=== PATIENT | male | born 1950 | race Caucasian/White ===

== ENCOUNTER → 2017-03-07 | Outpatient (CLI) | payer MEDICARE ==
[2017-03-07 08:59] LABS: ALT 48 U/L (21-72); AST 25 U/L (17-59); Alkaline Phosphatase 82 U/L (38-126); Anion Gap 13 mmol/L; Blood Urea Nitrogen 16 mg/dL (9-20); Calcium 9.3 mg/dL (8.4-10.2); Carbon Dioxide 28 mmol/L (22-30); Chloride 100 mmol/L (98-107); Cholesterol 149 mg/dL (<200); Glucose 181 mg/dL (74-99); HDL Cholesterol 33 mg/dL (40-60); Non-African American GFR(MDRD) >60 (>60 ml/min/1.73 sqM); Potassium 3.9 mmol/L (3.5-5.1); Sodium 141 mmol/L (137-145); Total Bilirubin 0.5 mg/dL (0.2-1.3); Total Protein 6.3 g/dL (6.3-8.2)
[2017-03-07 09:00] LABS: Triglycerides 412 mg/dL (<150)
[2017-03-07 14:02] LABS: Hemoglobin A1C 7.5 % (4.2-6.1)
[2017-03-07 15:50] LABS: Urine Creatinine 204.1 mg/dL
== END | disposition home or self-care (01) ==
LOC: LABWHC1 07:41
PROVIDERS: ATTEND Internal Medicine
DX: E78.5 Hyperlipidemia, unspecified (principal); I10 Essential (primary) hypertension; E11.9 Type 2 diabetes mellitus without complications
CPT/HCPCS: 36415; 80053; 80061; 82043; 82570; 83036

== ENCOUNTER → 2017-12-10 | Outpatient (CLI) | payer MEDICARE ==
[2017-12-10 08:22] LABS: Anion Gap 14 mmol/L; Blood Urea Nitrogen 22 mg/dL (9-20); Calcium 9.2 mg/dL (8.4-10.2); Carbon Dioxide 26 mmol/L (22-30); Chloride 101 mmol/L (98-107); Cholesterol 163 mg/dL (<200); Glucose 147 mg/dL (74-99); HDL Cholesterol 33 mg/dL (40-60); LDL Cholesterol,Calculated 70 mg/dL (0-99); Potassium 3.9 mmol/L (3.5-5.1); Sodium 141 mmol/L (137-145); Triglycerides 300 mg/dL (<150)
[2017-12-10 11:56] LABS: Hemoglobin A1C 6.6 % (4.0-6.0)
== END | disposition home or self-care (01) ==
LOC: LABWHC1 07:23
PROVIDERS: ATTEND Internal Medicine
DX: E11.9 Type 2 diabetes mellitus without complications (principal); E78.5 Hyperlipidemia, unspecified; M19.90 Unspecified osteoarthritis, unspecified site
CPT/HCPCS: 36415; 80048; 80061; 83036; 86431

== ENCOUNTER → 2018-03-11 | Outpatient (CLI) | payer MEDICARE ==
[2018-03-11 11:18] LABS: HCT 43.4 % (39.0-53.0); HGB 15.2 gm/dL (13.0-17.5); MCH 32.9 pg (25.0-35.0); MCHC 35.1 g/dL (31.0-37.0); MCV 93.7 fL (80.0-100.0); Mean Platelet Volume 7.6; Platelet Count 198 k/uL (150-450); RBC 4.63 m/uL (4.30-5.90); RDW 13.4 % (11.5-15.5)
[2018-03-11 12:03] LABS: Appearance,Urine Clear (Clear); Bilirubin,Urine Negative (Negative); Blood,Urine Negative (Negative); Color,Urine Yellow; Glucose,Urine (UA) Negative (Negative); Ketones,Urine Negative (Negative); Leukocyte Esterase,Urine Trace (Negative); Mucus,Urine Rare /hpf; Nitrite,Urine Negative (Negative); PH, Urine 5.5 (5.0-8.0); Protein,Urine Negative (Negative); RBC,Urine 1 /hpf (0-5); WBC,Urine 4 /hpf (0-5)
[2018-03-11 12:10] LABS: ALT 36 U/L (21-72); AST 35 U/L (17-59); Albumin 4.3 g/dL (3.5-5.0); Alkaline Phosphatase 86 U/L (38-126); Anion Gap 14 mmol/L; Blood Urea Nitrogen 21 mg/dL (9-20); Calcium 9.4 mg/dL (8.4-10.2); Carbon Dioxide 26 mmol/L (22-30); Chloride 100 mmol/L (98-107); Cholesterol 148 mg/dL (<200); Glucose 150 mg/dL (74-99); HDL Cholesterol 31 mg/dL (40-60); LDL Cholesterol,Calculated 56 mg/dL (0-99); Potassium 4.1 mmol/L (3.5-5.1); Sodium 140 mmol/L (137-145); Total Bilirubin 0.7 mg/dL (0.2-1.3); Total Protein 6.6 g/dL (6.3-8.2); Triglycerides 306 mg/dL (<150)
[2018-03-11 12:39] LABS: PSA Annual Screen 1.31 ng/mL (0.00-4.00)
[2018-03-11 19:48] LABS: Hemoglobin A1C 7.1 % (4.0-6.0)
== END | disposition home or self-care (01) ==
LOC: LABWHC1 10:56
PROVIDERS: ATTEND Internal Medicine
DX: I10 Essential (primary) hypertension (principal); E11.9 Type 2 diabetes mellitus without complications; E78.5 Hyperlipidemia, unspecified; Z12.5 Encounter for screening for malignant neoplasm of prostate
CPT/HCPCS: 80061; 80053; 85027; 81001; 82043; 82570; 83036; 36415; G0103

== ENCOUNTER → 2018-07-08 | Outpatient (CLI) | payer MEDICARE ==
[2018-07-08 18:03] LABS: Anion Gap 9.4 mmol/L (4.00-12.00); Calcium 9.4 mg/dL (8.7-10.3); Carbon Dioxide 28.6 mmol/L (21.6-31.8); LDL Cholesterol,Calculated 79.8 mg/dL (0.0-131.0); Potassium 4.1 mmol/L (3.5-5.5); VLDL Calculation 54.2 mg/dL (5.00-40.00)
[2018-07-08 19:12] LABS: Hemoglobin A1C 7.5 % (4.0-6.0)
== END | disposition home or self-care (01) ==
LOC: LABWHC1 08:26
PROVIDERS: ATTEND Internal Medicine
DX: E11.9 Type 2 diabetes mellitus without complications (principal); E78.5 Hyperlipidemia, unspecified
CPT/HCPCS: 36415; 80048; 80061; 83036

== ENCOUNTER → 2018-10-28 | Outpatient (CLI) | payer MEDICARE ==
[2018-10-28 15:56] LABS: Hemoglobin A1C 7.6 % (4.0-6.0)
[2018-10-28 16:02] LABS: Calcium 9.6 mg/dL (8.7-10.3); Carbon Dioxide 30.9 mmol/L (21.6-31.8); Chloride 101 mmol/L (96-109); Cholesterol 173 mg/dL (0-200); Glucose 174 mg/dL (70-110); Potassium 3.8 mmol/L (3.5-5.5); Sodium 141 mmol/L (135-145)
== END | disposition home or self-care (01) ==
LOC: LABWHC1 08:10
PROVIDERS: ATTEND Internal Medicine
DX: E11.9 Type 2 diabetes mellitus without complications (principal); I10 Essential (primary) hypertension; I65.29 Occlusion and stenosis of unspecified carotid artery
CPT/HCPCS: 36415; 80048; 80061; 83036; 83721

== ENCOUNTER → 2019-04-09 | Outpatient (CLI) | payer MEDICARE ==
[2019-04-09 08:04] LABS: HCT 43.5 % (39.0-53.0); HGB 14.6 gm/dL (13.0-17.5); MCH 31.3 pg (25.0-35.0); MCHC 33.6 g/dL (31.0-37.0); MCV 93.1 fL (80.0-100.0); Mean Platelet Volume 7.4; Platelet Count 204 k/uL (150-450); RBC 4.67 m/uL (4.30-5.90); RDW 13.1 % (11.5-15.5); WBC 5.1 k/uL (3.8-10.6)
[2019-04-09 12:06] LABS: African American GFR (CKD) 89.2 (60.0-200.0); Albumin 4.6 g/dL (3.80-4.90); Albumin/Globulin Ratio 2.56 (1.60-3.17); Anion Gap 9.5 mmol/L (4.00-12.00); Calcium 9.3 mg/dL (8.7-10.3); Carbon Dioxide 27.5 mmol/L (21.6-31.8); Globulin 1.8 g/dL (1.6-3.3); Potassium 3.8 mmol/L (3.5-5.5); Total Bilirubin 0.8 mg/dL (0.2-1.2); Total Protein 6.4 g/dL (6.2-8.2)
[2019-04-09 13:36] LABS: Hemoglobin A1C 5.9 % (4.0-6.0)
== END | disposition home or self-care (01) ==
LOC: LABWHC1 07:20
PROVIDERS: ATTEND Internal Medicine
DX: E78.5 Hyperlipidemia, unspecified (principal); E11.9 Type 2 diabetes mellitus without complications; Z12.5 Encounter for screening for malignant neoplasm of prostate
CPT/HCPCS: 80061; 80053; 85027; 82043; 82570; 83036; 36415; G0103

== ENCOUNTER → 2019-07-02 | Outpatient (CLI) | payer MEDICARE ==
[2019-07-02 15:48] LABS: African American GFR (CKD) 101.4 (60.0-200.0); Albumin 4.7 g/dL (3.80-4.90); Albumin/Globulin Ratio 2.61 (1.60-3.17); BUN/Creat Ratio 24.44 Ratio (12.00-20.00); Calcium 9.5 mg/dL (8.7-10.3); Chol/HDL Ratio 4.78; Globulin 1.8 g/dL (1.6-3.3); LDL Cholesterol,Calculated 90.6 mg/dL (0.0-131.0); Potassium 3.9 mmol/L (3.5-5.5); Total Bilirubin 0.6 mg/dL (0.3-1.2); Total Protein 6.5 g/dL (6.2-8.2); VLDL Calculation 30.4 mg/dL (5.00-40.00)
[2019-07-02 17:36] LABS: Hemoglobin A1C 6.2 % (4.0-6.0)
== END ==
LOC: LABWHC1 09:09
PROVIDERS: ATTEND Internal Medicine
DX: I10 Essential (primary) hypertension (principal); E78.5 Hyperlipidemia, unspecified; E11.9 Type 2 diabetes mellitus without complications
CPT/HCPCS: 36415; 80053; 80061; 83036

== ENCOUNTER → 2021-10-05 | Outpatient (CLI) | payer MEDICARE ==
[2021-10-05 14:43] LABS: ALT 25 U/L (10-49); AST 22 U/L (14-35); African American GFR (CKD) 100.7 (60.0-200.0); Albumin 4.5 g/dL (3.8-4.9); Albumin/Globulin Ratio 1.97 (1.60-3.17); Alkaline Phosphatase 57 U/L (41-126); BUN/Creat Ratio 17.42 Ratio (12.00-20.00); Blood Urea Nitrogen 15.4 mg/dL (9.0-27.0); Calcium 9.3 mg/dL (8.7-10.3); Carbon Dioxide 27.2 mmol/L (20.0-27.5); Chloride 102 mmol/L (96-109); Chol/HDL Ratio 3.99 Ratio; Globulin 2.3 g/dL (1.6-3.3); Glucose 93 mg/dL (70-110); LDL Cholesterol,Calculated 71.2 mg/dL (0.0-131.0); Non-African American GFR(CKD) 86.9 (60.0-200.0); Potassium 3.4 mmol/L (3.5-5.5); Sodium 142 mmol/L (135-145); Total Protein 6.8 g/dL (6.2-8.2)
== END | disposition home or self-care (01) ==
LOC: LABWHC1 07:23
PROVIDERS: ATTEND Internal Medicine Interventional Cardiology
DX: E78.2 Mixed hyperlipidemia (principal)
CPT/HCPCS: 36415; 80053; 80061

== ENCOUNTER → 2021-12-14 | Outpatient (CLI) | payer MEDICARE ==
[2021-12-14 10:48] LABS: HCT 45.6 % (39.6-50.0); HGB 14.9 g/dL (13.0-17.0); MCH 31.3 pg (27.0-32.0); MCHC 32.7 g/dL (32.0-37.0); MCV 95.8 fL (80.0-97.0); Mean Platelet Volume 10.1 fL (9.5-12.2); NRBC Per 100 WBC 0 /100 WBCS (0.0-0.0); Platelet Count 210 X 10*3/uL (140-440); RBC 4.76 X 10*6/uL (4.40-5.60); RDW 12.4 % (11.5-14.5); WBC 4.69 X 10*3/uL (4.50-10.00)
[2021-12-14 11:32] LABS: African American GFR (CKD) 96.8 (60.0-200.0); Albumin 4.8 g/dL (3.8-4.9); Albumin/Globulin Ratio 2.29 (1.60-3.17); Anion Gap 13.1 mmol/L (10.00-18.00); BUN/Creat Ratio 17.21 Ratio (12.00-20.00); Blood Urea Nitrogen 15.9 mg/dL (9.0-27.0); Calcium 9.6 mg/dL (8.7-10.3); Globulin 2.1 g/dL (1.6-3.3); Non-African American GFR(CKD) 83.5 (60.0-200.0); Potassium 4.3 mmol/L (3.5-5.5); Total Bilirubin 0.3 mg/dL (0.30-1.20); Total Protein 6.9 g/dL (6.2-8.2)
[2021-12-14 12:51] LABS: Appearance,Urine Cloudy (Clear); Bacteria,Urine None Seen /HPF (None Seen); Bilirubin,Urine Negative (Negative); Blood,Urine Negative (Negative); Calcium Oxalate Crystals,Urine Present /LPF (None Seen); Color,Urine Dark Yellow (Yellow); Ketones,Urine Trace mg/dL (Negative); Nitrite,Urine Negative (Negative); Specific Gravity,Urine 1.024 (1.001-1.030)
== END | disposition home or self-care (01) ==
LOC: LABWHC1 07:01
PROVIDERS: ATTEND Internal Medicine
DX: I10 Essential (primary) hypertension (principal); E11.9 Type 2 diabetes mellitus without complications; E78.5 Hyperlipidemia, unspecified
CPT/HCPCS: 36415; 80053; 81001; 83036; 85027

== ENCOUNTER → 2022-03-12 | Outpatient (CLI) | payer MEDICARE ==
[2022-03-12 11:06] LABS: Basophils # (A) 0.05 X 10*3/uL (0.00-0.10); Eosinophils # (A) 0.16 X 10*3/uL (0.04-0.35); Eosinophils % (A) 3.3 %; HCT 45.4 % (39.6-50.0); HGB 15.2 g/dL (13.0-17.0); Immature Grans, Automated 0.2 %; Lymphocytes % (A) 20.7 %; MCH 31.2 pg (27.0-32.0); MCHC 33.5 g/dL (32.0-37.0); MCV 93.2 fL (80.0-97.0); Mean Platelet Volume 10.7 fL (9.5-12.2); Monocytes # (A) 0.46 X 10*3/uL (0.20-1.00); Monocytes % (A) 9.5 %; NRBC Per 100 WBC 0 /100 WBCS (0.0-0.0); Neutrophils # (A) 3.15 X 10*3/uL (1.80-7.70); Neutrophils % (A) 65.3 %; Platelet Count 188 X 10*3/uL (140-440); RBC 4.87 X 10*6/uL (4.40-5.60); RDW 11.9 % (11.5-14.5); WBC 4.83 X 10*3/uL (4.50-10.00)
[2022-03-12 11:32] LABS: Rheumatoid Factor, Qnt <10 IU/mL (0-15)
[2022-03-12 12:05] LABS: ALT 26 U/L (10-49); AST 23 U/L (14-35); African American GFR (CKD) 99.9 (60.0-200.0); Albumin 4.8 g/dL (3.8-4.9); Alkaline Phosphatase 72 U/L (41-126); BUN/Creat Ratio 15.01 Ratio (12.00-20.00); Blood Urea Nitrogen 13.3 mg/dL (9.0-27.0); Calcium 9.8 mg/dL (8.7-10.3); Carbon Dioxide 30.1 mmol/L (20.0-27.5); Chloride 99 mmol/L (96-109); Globulin 2.2 g/dL (1.6-3.3); Glucose 111 mg/dL (70-110); Non-African American GFR(CKD) 86.2 (60.0-200.0); Potassium 4.9 mmol/L (3.5-5.5); Sodium 140 mmol/L (135-145)
== END | disposition home or self-care (01) ==
LOC: LABWHC1 07:03
PROVIDERS: ATTEND Physician Assistant
DX: E55.9 Vitamin D deficiency, unspecified (principal); G60.9 Hereditary and idiopathic neuropathy, unspecified
CPT/HCPCS: 36415; 80053; 82306; 82607; 84207; 84439; 84443; 84481; 85025; 86038; 86431

== ENCOUNTER → 2022-04-10 | Outpatient (CLI) | payer MEDICARE ==
--- NOTE | 2022-04-10 14:31 | US ---
EXAMINATION TYPE: US venous doppler duplex LE DATE OF EXAM: 04/10/2022 1:41 PM COMPARISON: NONE CLINICAL HISTORY: M79.606 LOWER EXTREMITY PAIN. Patient states he had bruising on the left leg that h is physician was concerned about. SIDE PERFORMED: Bilateral TECHNIQUE: The lower extremity deep venous system is examined utilizing real time linear array sonog breanna with graded compression, doppler sonography and color-flow sonography. VESSELS IMAGED: Common Femoral Vein Deep Femoral Vein Greater Saphenous Vein * Femoral Vein Popliteal Vein Small Saphenous Vein * Proximal Calf Veins (* superficial vessels) Right Leg: Negative for DVT Left Leg: Negative for DVT IMPRESSION: 1. Bilateral lower extremity ultrasound negative for deep venous thrombosis
== END | disposition home or self-care (01) ==
LOC: RADUSWWP 13:39
PROVIDERS: ATTEND Internal Medicine
DX: M79.606 Pain in leg, unspecified (principal); S80.12XA Contusion of left lower leg, initial encounter; Y99.9 Unspecified external cause status
CPT/HCPCS: 93970

== ENCOUNTER 2023-04-15 02:05 | Emergency (ER) | payer MEDICARE ==
[2023-04-15 02:15] VITALS: RESP 18; TEMP 97.8
[2023-04-15] MEDS ORDERED: KETOROLAC 15 MG/ML 1 ML VIAL IM STA (02:41)
[2023-04-15] MEDS ORDERED: ORPHENADRINE 30 MG/ML 2 ML VIAL IM STA (02:41)
--- NOTE | 2023-04-15 02:51 | ED ---
Back Pain HPI - General Chief Complaint: Back Pain/Injury Stated Complaint: Right low back pain Time Seen by Provider: 04/15/23 02:33 Source: patient Limitations: no limitations - History of Present Illness Initial Comments: 72-year-old male presenting with chief complaint of back pain. He states that this evening he was bending over any when he tried to stand up he had severe lower back pain. Located mainly on the right lower side. No loss of bowel or bladder control or saddle paresthesia. No hematuria or dysuria. No weakness. - Related Data Allergies Allergy/AdvReac Type Severity Reaction Status Date / Time No Known Allergies Allergy Verified 04/15/23 02:19 Review of Systems ROS Statement: Those systems with pertinent positive or pertinent negative responses have been documented in the HPI. ROS Other: All systems not noted in ROS Statement are negative. Past Medical History Past Medical History: Diabetes Mellitus, Hyperlipidemia, Hypertension Additional Past Medical History / Comment(s): Symptoms of parkinsons History of Any Multi-Drug Resistant Organisms: None Reported Past Surgical History: Hernia Repair, Tonsillectomy Additional Past Surgical History / Comment(s): Tonsils and adenoids, Rt thumb injury repair, repair of Right meniscus, sphincter repair, Left carotid endardectomy, Left cataract Smoking Status: Never smoker Past Alcohol Use History: Rare Past Drug Use History: None Reported General Exam Limitations: no limitations General appearance: alert, in no apparent distress Head exam: Present: atraumatic, normocephalic, normal inspection Eye exam: Present: normal appearance, EOMI Neck exam: Present: normal inspection, full ROM Respiratory exam: Present: normal lung sounds bilaterally. Absent: respiratory distress, wheezes, rales, rhonchi, stridor Cardiovascular Exam: Present: regular rate, normal rhythm, normal heart sounds. Absent: systolic murmur, diastolic murmur, rubs, gallop, clicks Back exam: Present: normal inspection, paraspinal tenderness. Absent: vertebral tenderness Neurological exam: Present: alert, oriented X3, CN II-XII intact Psychiatric exam: Present: normal affect, normal mood Skin exam: Present: warm, dry, intact, normal color. Absent: rash Course Vital Signs 04/15/23 04/15/23 02:11 03:49 Temperature 97.8 F Pulse Rate 82 83 Respiratory 18 18 Rate Blood Pressure 144/73 129/70 O2 Sat by Pulse 98 97 Oximetry Medical Decision Making - Medical Decision Making Was pt. sent in by a medical professional or institution (, PA, COGNOS ANALYST, urgent care, hospital, or assisted...) When possible be specific @ -No Did you speak to anyone other than the patient for history (EMS, parent, family, police, friend...)? What history was obtained from this source @ -No Did you review nursing and triage notes (agree or disagree)? Why? @ -I reviewed and agree with nursing and triage notes Were old charts reviewed (outside hosp., previous admission, EMS record, old EKG, old radiological studies, urgent care reports/EKG's, assisted records)? Report findings @ -No old charts were reviewed Differential Diagnosis (chest pain, altered mental status, abdominal pain women, abdominal pain men, vaginal bleeding, weakness, fever, dyspnea, syncope, headache, dizziness, GI bleed, back pain, seizure, CVA, palpatations, mental health, musculoskeletal)? @ -MDM Differential Back Pain: Strain, zoster, cauda equina syndrome, epidural abscess, vertebral osteomyelitis, discitis, fracture, subluxation, disc herniation, DJD, spinal stenosis, dissection, AAA, pancreatitis, peptic ulcer disease, pyelonephritis, kidney stone this is not meant to be an all-inclusive list. EKG interpreted by me (3pts min.). @ -As above X-rays interpreted by me (1pt min.). @ -None done CT interpreted by me (1pt min.). @ -None done U/S interpreted by me (1pt. min.). @ -None done What testing was considered but not performed or refused? (CT, X-rays, U/S, labs)? Why? @ -None What meds were considered but not given or refused? Why? @ -None Did you discuss the management of the patient with other professionals (professionals i.e. , HAL, COGNOS ANALYST, lab, RT, psych nurse, social security assessor, tube worker, teacher, protective officer, human services case manager)? Give summary @ -No Was smoking cessation discussed for >3mins.? @ -No Was critical care preformed (if so, how long)? @ -No Were there social determinants of health that impacted care today? How? (Homelessness, low income, unemployed, alcoholism, drug addiction, transportation, low edu. Level, literacy, decrease access to med. care, residential, rehab)? @ -No Was there de-escalation of care discussed even if they declined (Discuss DNR or withdrawal of care, Hospice)? DNR status @ -No What co-morbidities impacted this encounter? (DM, HTN, Smoking, COPD, CAD, Cancer, CVA, ARF, Chemo, Hep., AIDS, mental health diagnosis, sleep apnea, morbid obesity)? @ -None Was patient admitted / discharged? Hospital course, mention meds given and route, prescriptions, significant lab abnormalities, going to OR and other pertinent info. @ -72-year-old male presenting with chief complaint of right-sided lower back pain that started this evening after bending over. No red flag symptoms. No urinary symptoms. Physical examination shows right-sided paraspinal muscle tenderness. Patient is given Toradol, Norflex, lidocaine patch, and reassessment he reports dramatic improvement in his pain. He'll be discharged home. Educated on supportive management. Follow-up with PCP. Report back to ER with any new or worsening symptoms. Discussed return parameters and answered all questions. Patient conveyed verbal understanding and agreed to the plan. I discussed this case in detail with my attending Dr. Melgoza Undiagnosed new problem with uncertain prognosis? @ -No Drug Therapy requiring intensive monitoring for toxicity (Heparin, Nitro, Insulin, Cardizem)? @ -No Were any procedures done? @ -No Diagnosis/symptom? @ -Lower back strain Acute, or Chronic, or Acute on Chronic? @ -Acute Uncomplicated (without systemic symptoms) or Complicated (systemic symptoms)? @ -Uncomplicated Side effects of treatment? @ -No Exacerbation, Progression, or Severe Exacerbation? @ -No Poses a threat to life or bodily function? How? (Chest pain, [place], [place], pneumonia, PE, COPD, DKA, ARF, appy, cholecystitis, CVA, Diverticulitis, Homicidal, Suicidal, threat to staff... and all critical care pts) @ -No Disposition Clinical Impression: Strain of lumbar region Disposition: HOME SELF-CARE Condition: Good Instructions (If sedation given, give patient instructions): Acute Low Back Pain (ED) Additional Instructions: Follow-up with PCP. Report back to ER with any new or worsening symptoms. Alternate Motrin and Tylenol as needed for pain control. [id number] lidocaine patches may be helpful. Do not take cyclobenzaprine before driving or operating heavy machinery as it may cause drowsiness. Is patient prescribed a controlled substance at d/c from ED?: No Referrals: Xu Lundberg MD [Primary Care Provider] - 1-2 days Time of Disposition: 03:25
[2023-04-15] MEDS ORDERED: CYCLOBENZAPRINE 10MG STARTER 3 TAB BTL PO STA (03:25)
[2023-04-15 03:51] VITALS: BP 129/70; PULSE 83
[2023-04-15] MEDS ORDERED: LIDOCAINE 5% PATCH TOPICAL SCH (09:00)
== END 2023-04-15 03:50 | disposition home or self-care (01) ==
LOC: EC 02:05 → SUPCPDRO 02:05 → EC 03:50
DX: S39.012A Strain of muscle, fascia and tendon of lower back, initial encounter (principal); I10 Essential (primary) hypertension; E11.9 Type 2 diabetes mellitus without complications; X50.1XXA Overexertion from prolonged static or awkward postures, initial encounter
CPT/HCPCS: 99283; 96372 ×2; J2360; J1885

== ENCOUNTER → 2023-04-25 | Outpatient (CLI) | payer MEDICARE ==
[2023-04-25 13:30] LABS: ALT 21 U/L (10-49); AST 24 U/L (14-35); Albumin 4.7 d/dL (3.8-4.9); Albumin/Globulin Ratio 2.24 Ratio (1.60-3.17); Alkaline Phosphatase 67 U/L (41-126); BUN/Creat Ratio 21.38 Ratio (12.00-20.00); Blood Urea Nitrogen 17.1 mg/dL (9.0-27.0); Calcium 9.8 mg/dL (8.7-10.3); Carbon Dioxide 29.3 mmol/L (21.6-31.8); Chloride 100 mmol/L (96-109); Chol/HDL Ratio 3.17 Ratio; Globulin 2.1 d/dL (1.6-3.3); Glucose 106 mg/dL (70-110); LDL Cholesterol,Calculated 68.5 mg/dL (0.0-131.0); Potassium 4.3 mmol/L (3.5-5.5); Sodium 143 mmol/L (135-145); Total Bilirubin 0.3 mg/dL (0.3-1.2); Total Protein 6.8 d/dL (6.2-8.2)
== END | disposition home or self-care (01) ==
LOC: LABWHC1 06:49
PROVIDERS: ATTEND Internal Medicine Interventional Cardiology
DX: E78.2 Mixed hyperlipidemia (principal)
CPT/HCPCS: 36415; 80053; 80061

== ENCOUNTER → 2023-11-10 | Outpatient (CLI) | payer MEDICARE ==
[2023-11-10 11:19] LABS: Chol/HDL Ratio 3.14 Ratio
[2023-11-10 11:20] LABS: ALT 19 U/L (10-49); AST 20 U/L (14-35); LDL Cholesterol,Calculated 73.4 mg/dL (0.0-131.0)
== END | disposition home or self-care (01) ==
LOC: LABWHC1 06:56
PROVIDERS: ATTEND Internal Medicine Interventional Cardiology
DX: E78.2 Mixed hyperlipidemia (principal)
CPT/HCPCS: 36415; 80061; 84450; 84460

== ENCOUNTER 2024-01-24 23:38 | Inpatient (IN) | payer MEDICARE ==
[2024-01-25 00:27] LABS: Basophils # (A) 0.1 k/uL (0-0.2); Basophils % (A) 1 %; Eosinophils # (A) 0.2 k/uL (0-0.7); Eosinophils % (A) 3 %; HCT 40.8 % (39.0-53.0); HGB 13.7 gm/dL (13.0-17.5); Lymphocytes # (A) 0.9 k/uL (1.0-4.8); Lymphocytes % (A) 19 %; MCH 31.5 pg (25.0-35.0); MCHC 33.6 g/dL (31.0-37.0); MCV 93.7 fL (80.0-100.0); Mean Platelet Volume 8.1; Monocytes # (A) 0.4 k/uL (0-1.0); Monocytes % (A) 8 %; Neutrophils # (A) 3.3 k/uL (1.3-7.7); Neutrophils % (A) 67 %; Platelet Count 182 k/uL (150-450); RBC 4.35 m/uL (4.30-5.90); RDW 12.7 % (11.5-15.5); WBC 4.9 k/uL (3.8-10.6)
[2024-01-25 00:38] LABS: ALT 23 U/L (4-49); AST 28 U/L (17-59); African American GFR (CKD) >90 (>60 ml/min/1.73 sqM); Albumin 4.1 g/dL (3.5-5.0); Alkaline Phosphatase 69 U/L (38-126); Anion Gap 8 mmol/L; Blood Urea Nitrogen 13 mg/dL (9-20); Calcium 8.9 mg/dL (8.4-10.2); Carbon Dioxide 32 mmol/L (22-30); Chloride 97 mmol/L (98-107); Glucose 126 mg/dL (74-99); Magnesium 1.6 mg/dL (1.6-2.3); Non-African American GFR(CKD) >90 (>60 ml/min/1.73 sqM); Potassium 3.4 mmol/L (3.5-5.1); Sodium 137 mmol/L (137-145); Total Bilirubin 0.6 mg/dL (0.2-1.3); Total Protein 6.3 g/dL (6.3-8.2)
[2024-01-25 00:49] LABS: INR 0.9 (<1.2); Partial Thromboplastin Time 23.1 sec (22.0-30.0); Prothrombin Time 10.5 sec (10.0-12.5)
--- NOTE | 2024-01-25 00:57 | ED ---
General Adult HPI - General Chief complaint: Chest Pain Stated complaint: warmth in extremities, heart beating sensation Time Seen by Provider: 01/24/24 23:49 Source: patient, RN notes reviewed, old records reviewed Mode of arrival: ambulatory Limitations: no limitations - History of Present Illness Initial comments: 73-year-old male presenting for evaluation of chest pain with radiation to the left arm. Patient is scheduled for heart cath in 2 days secondary to abnormal outpatient stress test. He has no prior history of stenting. He has history of diabetes and hypertension. This evening he developed a substernal chest discomfort with radiation into the left arm. No associated vomiting or diaphoresis. Pain was at rest. - Related Data Allergies Allergy/AdvReac Type Severity Reaction Status Date / Time No Known Allergies Allergy Verified 04/15/23 02:19 Review of Systems ROS Statement: Those systems with pertinent positive or pertinent negative responses have been documented in the HPI. ROS Other: All systems not noted in ROS Statement are negative. Past Medical History Past Medical History: Diabetes Mellitus, Hyperlipidemia, Hypertension Additional Past Medical History / Comment(s): Symptoms of parkinsons History of Any Multi-Drug Resistant Organisms: None Reported Past Surgical History: Hernia Repair, Tonsillectomy Additional Past Surgical History / Comment(s): Tonsils and adenoids, Rt thumb injury repair, repair of Right meniscus, sphincter repair, Left carotid endard ectomy, Left cataract Smoking Status: Never smoker Past Alcohol Use History: Rare Past Drug Use History: None Reported General Exam Limitations: no limitations General appearance: alert, in no apparent distress Head exam: Present: atraumatic, normocephalic Eye exam: Present: normal appearance, PERRL ENT exam: Present: normal exam Neck exam: Present: normal inspection Respiratory exam: Present: normal lung sounds bilaterally. Absent: respiratory distress Cardiovascular Exam: Present: regular rate, normal rhythm GI/Abdominal exam: Present: soft. Absent: distended, tenderness, guarding Extremities exam: Present: normal inspection Neurological exam: Present: alert, oriented X3. Absent: motor sensory deficit Psychiatric exam: Present: normal affect, normal mood Skin exam: Present: warm, dry, intact. Absent: cyanosis, diaphoretic Course Vital Signs 01/24/24 01/25/24 01/25/24 23:40 00:08 01:27 Temperature 97.9 F Pulse Rate 83 80 68 Respiratory 16 16 17 Rate Blood Pressure 144/78 127/71 138/73 O2 Sat by Pulse 98 94 L 98 Oximetry Medical Decision Making - Medical Decision Making Was pt. sent in by a medical professional or institution (HAL Lopez, AUTOMATIC BOW MAKER MACHINE TENDER, urgent care, hospital, or fci...) When possible be specific @ -No Did you speak to anyone other than the patient for history (EMS, parent, family, police, friend...)? What history was obtained from this source @ -No Did you review nursing and triage notes (agree or disagree)? Why? @ -I reviewed and agree with nursing and triage notes Were old charts reviewed (outside hosp., previous admission, EMS record, old EKG, old radiological studies, urgent care reports/EKG's, fci records)? Report findings @ -No old charts were reviewed Differential Chest Pain: Stable Angina, Unstable Angina, STEMI, NSTEMI Aortic Dissection, Pneumothorax, Musculoskeletal, Esophageal Spasm GERD, Cholecystitis, Pancreatitis, Zoster, this is not meant to be an all-inclusive list. EKG interpreted by me (3pts min.). @ -EKG: Sinus rhythm rate of 78, ND interval 184, QRS duration 116, QTc [address] segment elevation. X-rays interpreted by me (1pt min.). @Chest x-ray negative for acute cardiopulmonary disease CT interpreted by me (1pt min.). @ -None done U/S interpreted by me (1pt. min.). @ -None done What testing was considered but not performed or refused? (CT, X-rays, U/S, labs)? Why? @ -None What meds were considered but not given or refused? Why? @ -None Did you discuss the management of the patient with other professionals (professionals i.e. HAL Lopez, AUTOMATIC BOW MAKER MACHINE TENDER, lab, RT, psych nurse, psychologist social, cold mill inspector, teacher, air control/anti air warfare officer, pillowcase cutter)? Give summary @ -Sound physician group Was smoking cessation discussed for >3mins.? @ -No Was critical care preformed (if so, how long)? @ -No Were there social determinants of health that impacted care today? How? (Homelessness, low income, unemployed, alcoholism, drug addiction, transportation, low edu. Level, literacy, decrease access to med. care, correction, rehab)? @ -No Was there de-escalation of care discussed even if they declined (Discuss DNR or withdrawal of care, Hospice)? DNR status @ -No What co-morbidities impacted this encounter? (DM, HTN, Smoking, COPD, CAD, Cancer, CVA, ARF, Chemo, Hep., AIDS, mental health diagnosis, sleep apnea, morbid obesity)? @ -Hypertension, diabetes Was patient admitted / discharged? Hospital course, mention meds given and route, prescriptions, significant lab abnormalities, going to OR and other pertinent info. @ -[73-year-old male presenting for evaluation of chest pain with radiation to the left arm. EKG is sinus without ST segment elevation. Patient's chest x-ray is clear. Laboratory testing including initial troponin unremarkable. Given the recent positive stress test he will be observed for serial cardiac enzymes, telemetry, cardiology consultation. Case discussed with Dr. Farah who will admit. Undiagnosed new problem with uncertain prognosis? @ -No Drug Therapy requiring intensive monitoring for toxicity (Heparin, Nitro, Insulin, Cardizem)? @ -No Were any procedures done? @ -No Diagnosis/symptom? @ -[Chest pain Acute, or Chronic, or Acute on Chronic? @ -Acute Uncomplicated (without systemic symptoms) or Complicated (systemic symptoms)? @ -Default Side effects of treatment? @ -No Exacerbation, Progression, or Severe Exacerbation? @ -No Poses a threat to life or bodily function? How? (Chest pain, [place], [place], pneumonia, PE, COPD, DKA, ARF, appy, cholecystitis, CVA, Diverticulitis, Homicidal, Suicidal, threat to staff... and all critical care pts) @ -Yes, ACS - Lab Data Result diagrams: 01/24/24 23:57 01/24/24 23:57 Lab Results 01/24/24 01/24/24 01/24/24 Range/Units 23:57 23:57 23:57 WBC 4.9 (3.8-10.6) k/uL RBC 4.35 (4.30-5.90) m/uL Hgb 13.7 (13.0-17.5) gm/dL Hct 40.8 (39.0-53.0) % MCV 93.7 (80.0-100.0) fL MCH 31.5 (25.0-35.0) pg MCHC 33.6 (31.0-37.0) g/dL RDW 12.7 (11.5-15.5) % Plt Count 182 (150-450) k/uL MPV 8.1 Neutrophils % 67 % Lymphocytes % 19 % Monocytes % 8 % Eosinophils % 3 % Basophils % 1 % Neutrophils # 3.3 (1.3-7.7) k/uL Lymphocytes # 0.9 L (1.0-4.8) k/uL Monocytes # 0.4 (0-1.0) k/uL Eosinophils # 0.2 (0-0.7) k/uL Basophils # 0.1 (0-0.2) k/uL PT 10.5 (10.0-12.5) sec INR 0.9 (<1.2) APTT 23.1 (22.0-30.0) sec Sodium 137 (137-145) mmol/L Potassium 3.4 L (3.5-5.1) mmol/L Chloride 97 L (98-107) mmol/L Carbon Dioxide 32 H (22-30) mmol/L Anion Gap 8 mmol/L BUN 13 (9-20) mg/dL Creatinine 0.72 (0.66-1.25) mg/dL Est GFR (CKD-EPI)AfAm >90 (>60 ml/min/1.73 sqM) Est GFR (CKD-EPI)NonAf >90 (>60 ml/min/1.73 sqM) Glucose 126 H (74-99) mg/dL Calcium 8.9 (8.4-10.2) mg/dL Magnesium 1.6 (1.6-2.3) mg/dL Total Bilirubin 0.6 (0.2-1.3) mg/dL AST 28 (17-59) U/L ALT 23 (4-49) U/L Alkaline Phosphatase 69 (38-126) U/L Troponin I (0.000-0.034) ng/mL Total Protein 6.3 (6.3-8.2) g/dL Albumin 4.1 (3.5-5.0) g/dL 01/24/24 Range/Units 23:57 WBC (3.8-10.6) k/uL RBC (4.30-5.90) m/uL Hgb (13.0-17.5) gm/dL Hct (39.0-53.0) % MCV (80.0-100.0) fL MCH (25.0-35.0) pg MCHC (31.0-37.0) g/dL RDW (11.5-15.5) % Plt Count (150-450) k/uL MPV Neutrophils % % Lymphocytes % % Monocytes % % Eosinophils % % Basophils % % Neutrophils # (1.3-7.7) k/uL Lymphocytes # (1.0-4.8) k/uL Monocytes # (0-1.0) k/uL Eosinophils # (0-0.7) k/uL Basophils # (0-0.2) k/uL PT (10.0-12.5) sec INR (<1.2) APTT (22.0-30.0) sec Sodium (137-145) mmol/L Potassium (3.5-5.1) mmol/L Chloride (98-107) mmol/L Carbon Dioxide (22-30) mmol/L Anion Gap mmol/L BUN (9-20) mg/dL Creatinine (0.66-1.25) mg/dL Est GFR (CKD-EPI)AfAm (>60 ml/min/1.73 sqM) Est GFR (CKD-EPI)NonAf (>60 ml/min/1.73 sqM) Glucose (74-99) mg/dL Calcium (8.4-10.2) mg/dL Magnesium (1.6-2.3) mg/dL Total Bilirubin (0.2-1.3) mg/dL AST (17-59) U/L ALT (4-49) U/L Alkaline Phosphatase (38-126) U/L Troponin I <0.012 (0.000-0.034) ng/mL Total Protein (6.3-8.2) g/dL Albumin (3.5-5.0) g/dL Disposition Clinical Impression: Chest pain Disposition: ADMITTED IP TO THIS HOSP Condition: Stable Is patient prescribed a controlled substance at d/c from ED?: No Referrals: Xu Lundberg MD [Primary Care Provider] - 1-2 days Time of Disposition: 01:45
--- NOTE | 2024-01-25 01:18 | XR ---
EXAM: XR Chest, 2 Views CLINICAL HISTORY: ITS.REASON XR Reason: Chest Pain TECHNIQUE: Frontal and lateral views of the chest. COMPARISON: No relevant prior studies available. FINDINGS: Lungs: No consolidation or mass. Pleural space: No effusion. Heart: No cardiomegaly. Bones/joints: No acute findings. IMPRESSION: No acute cardiopulmonary process.
[2024-01-25] MEDS ORDERED: ACETAMINOPHEN TAB 325 MG TAB PO PRN (01:42)
[2024-01-25] MEDS ORDERED: ONDANSETRON 4 MG/2 ML VIAL IVP PRN (01:42)
[2024-01-25] MEDS ORDERED: NALOXONE 0.4 MG/ML 1 ML VIAL IV PRN (01:42)
[2024-01-25] MEDS ORDERED: NITROGLYCERIN SL TABS 0.4 MG TAB SUBLINGUAL PRN (01:44)
[2024-01-25] MEDS: ASPIRIN 325 MG TAB PO STA (03:51)
[2024-01-25] MEDS ORDERED: DEXTROSE 50% SYRINGE 50 ML IVP PRN ×2 (06:49)
--- NOTE | 2024-01-25 06:55 | P.HPIM ---
History of Present Illness H&P Date: 01/25/24 Chief Complaint: Chest pain 73-year-old male with diabetes mellitus hypertension Patient coming in for evaluation of recurrent chest pain. He reports for the past few weeks he has been having off-and-on chest pain symptoms for which she has been seen cardiology had positive stress test done as an outpatient and was scheduled to have a heart cath on Friday next week. However today as he was going to bed and lying down he started having epigastric pain described as bur tammy sensation 5 out of 10 in severity nonradiating he was also feeling some burning sensation in the proximal portion of his left forearm for which she grew concerned as this is typical of his recurrent episodes and decided to come into the hospital for evaluation he denies any associated dizziness lightheadedness palpitations shortness of breath nausea vomiting denies any GI bleeding denies any melena. Patient denies any fevers chills coughing upper respiratory infection symptoms denies any recent travel hospital stay denies any history of blood clots. Patient denies tobacco smoking illicit drugs or heavy alcohol review of systems Pertinent positives as noted in HPI. All other systems were reviewed and are negative on exam Constitutional: No acute distress, conversant, pleasant Eyes: Anicteric sclerae, moist conjunctiva, Pupils equal round reactive to light ENMT: NC/AT Oropharynx clear, no erythema, or exudates Neck: Supple, no masses, or JVD No carotid bruits No thyromegaly Lungs: Clear to auscultation Clear to percussion Normal respiratory effort, no accessory muscle use Cardiovascular: Heart regular in rate and rhythm, No murmurs, gallops, or rubs No peripheral edema Abdominal: Soft Nontender, no guarding, rebound or rigidity Abdomen moving with respiration Normoactive bowel sounds Extremities: No digital cyanosis No clubbing Pedal pulses intact and symmetrical Radial pulses intact and symmetrical No calf tenderness Psychiatric: Alert and oriented to person, place and time Appropriate affect fair judgement Neuro Muscles Strength 5/5 in all 4 extremities Sensation to light touch grossly present throughout Cranial nerves II-XII grossly intact Past Medical History Past Medical History: Diabetes Mellitus, Hyperlipidemia, Hypertension Additional Past Medical History / Comment(s): Symptoms of parkinsons History of Any Multi-Drug Resistant Organisms: None Reported Past Surgical History: Hernia Repair, Tonsillectomy Additional Past Surgical History / Comment(s): Tonsils and adenoids, Rt thumb injury repair, repair of Right meniscus, sphincter repair, Left carotid endardectomy, Left cataract Smoking Status: Never smoker Past Alcohol Use History: Rare Past Drug Use History: None Reported Medications and Allergies Allergies Allergy/AdvReac Type Severity Reaction Status Date / Time No Known Allergies Allergy Verified 04/15/23 02:19 Physical Exam Vitals: Vital Signs Temp Pulse Pulse Resp BP BP Pulse Ox 01/25/24 02:17 97.7 F 73 16 132/65 98 01/25/24 01:27 68 17 138/73 98 01/25/24 00:08 80 16 127/71 94 L 01/24/24 23:40 97.9 F 83 16 144/78 98 Intake and Output 01/24/24 01/24/24 01/25/24 14:59 22:59 06:59 Other: # Voids 1 Weight 79.379 kg Results CBC & Chem 7: 01/24/24 23:57 01/24/24 23:57 Labs: Abnormal Lab Results - Last 24 Hours (Table) 01/24/24 01/24/24 Range/Units 23:57 23:57 Lymphocytes # 0.9 L (1.0-4.8) k/uL Potassium 3.4 L (3.5-5.1) mmol/L Chloride 97 L (98-107) mmol/L Carbon Dioxide 32 H (22-30) mmol/L Glucose 126 H (74-99) mg/dL Thrombosis Risk Factor Assmnt - Choose All That Apply Any of the Below Risk Factors Present?: Yes Each Factor Represents 1 point: Obesity (BMI >25) Other Risk Factors: Yes Each Risk Factor Represents 2 Points: Age 61-74 years Other congenital or acquired thrombophilia - If yes, enter type in comment: No Thrombosis Risk Factor Assessment Total Risk Factor Score: 3 Thrombosis Risk Factor Assessment Level: Moderate Risk Assessment and Plan Assessment: 73-year-old male with diabetes mellitus hypertension coming in due to recurrent episodes of chest pain, I discussed the case with ED doctor and accepted the admission for atypical chest pain rule out acute coronary syndrome with anticipated length of stay less than 2 midnights Atypical chest pain rule out acute coronary syndrome Troponins negative continue to trend EKG no acute ST changes Patient reports positive stress test as an outpatient with scheduled left heart cath next week Cardiology consult Aspirin p.o. daily 81 mg Atorvastatin p.o. daily 40 mg Cardiac monitoring Monitor vital signs Nitro as needed for pain IV fluid hydration normal saline 75 cc/h Diabetes mellitus Insulin sliding scale Chest x-ray showed no acute cardiopulmonary process Blood work unremarkable overall showing white count 4.9 hemoglobin 13.7 Sodium 137 potassium 3.4 BUN 13 creatinine 0.72 Full code DVT prophylaxis heparin subcu 3 times daily GI prophylaxis Protonix 40 mg p.o. daily
[2024-01-25] MEDS: ATORVASTATIN 40 MG TAB PO SCH (08:47)
[2024-01-25] MEDS: ASPIRIN 81 MG PO SCH (08:47)
[2024-01-25] MEDS: SODIUM CHLORIDE 0.9% 1,000 ML IV SCH (08:47)
[2024-01-25] MEDS: PANTOPRAZOLE 40 MG TABLET PO SCH (08:48)
[2024-01-25] MEDS: INSULIN ASPART (NovoLOG) 100 UNIT/ML VIAL SQ SCH (08:52)
[2024-01-25 08:54] LABS: Glucose,Whole Blood 102 mg/dL (70-110)
[2024-01-25] MEDS: HEPARIN SOD,PORK IN 0.45% NACL 25,000 UNIT in 0.45% NACL 1 250ML.BAG IV SCH (10:07)
[2024-01-25] MEDS: HEPARIN SODIUM 1,000 UN/ML (10ML VL) IV ONE (10:08)
[2024-01-25] MEDS: POTASSIUM CHLORIDE ER 20 MEQ TAB.ER PO STA (10:08)
[2024-01-25] MEDS: MAGNESIUM SULFATE-D5W PMX 1 GM in DEXTROSE/WATER 1 100ML.BAG IVPB SCH (10:08)
[2024-01-25] MEDS: HEPARIN SODIUM,PORCINE 5,000 UNIT/ML 1 ML VIAL SQ SCH (10:33)
[2024-01-25] MEDS: amLODIPine 5 MG TAB PO SCH (11:10)
[2024-01-25 11:21] LABS: Basophils # (A) 0.1 k/uL (0-0.2); Basophils % (A) 1 %; Eosinophils # (A) 0.1 k/uL (0-0.7); Eosinophils % (A) 2 %; HCT 44.8 % (39.0-53.0); HGB 15.1 gm/dL (13.0-17.5); Lymphocytes # (A) 0.9 k/uL (1.0-4.8); Lymphocytes % (A) 20 %; MCH 31.9 pg (25.0-35.0); MCHC 33.7 g/dL (31.0-37.0); MCV 94.8 fL (80.0-100.0); Mean Platelet Volume 8.5; Monocytes # (A) 0.3 k/uL (0-1.0); Monocytes % (A) 7 %; Neutrophils % (A) 68 %; Platelet Count 199 k/uL (150-450); RBC 4.72 m/uL (4.30-5.90); RDW 13.1 % (11.5-15.5); WBC 4.4 k/uL (3.8-10.6)
--- NOTE | 2024-01-25 11:23 | P.CRDCN ---
History of Present Illness Consult date: 01/25/24 Consult reason: chest pain Chief complaint: chest pain History of present illness: History of present illness: Patient is a pleasant 73-year-old male with significant past medical history of hypertension, hyperlipidemia, diabetes type 2, carotid stenosis status post endarterectomy on the left who presented with complaints of chest pain. He sees Dr. Collins in the office and had recent cardiac workup. Echocardiogram 01/19/2024 with EF 55-60%, mildmod mitral regurgitation. MPI 01/21/[address] depression as well as anteroapical and anteroseptal ischemia. Started on Imdur a couple days ago. He was scheduled for left heart cath on 01/[address] Collins. He reports that yesterday evening he laid down to go to bed and noticed a slight heartburn and his left wrist was hurting. He tried to wait this out however left arm pain got more significant and therefore he came to the emergency department. Prior to that for the past few weeks he has been having intermittent chest pain been worse with exertion. He denies any shortness of breath, dizziness, palpitations, or syncope. Troponins <0.012, 0.032, 0.04 creatinine 0.72, potassium 3.7. This morning denies any chest pain or pressure or left arm pain. LDL from 10/2023 with 73. REVIEW OF SYSTEMS: No fever or chills. No cough or expectoration. No diaphoresis. Patient denies headache, dizziness, blurred vision, double vision. Patient denies any stomach discomfort. No nausea, vomiting. No hematochezia. No hematemesis. Denies any black stools or blood in his stools. Denies dysuria or hematuria. No muscle weakness or numbness. Reports chest pain and left arm pain. PHYSICAL EXAMINATION: This is a 73-year-old male in no apparent distress at the time of my examination. HEENT: Head is atraumatic, normocephalic. Pupils are equal, round. Sclerae anicteric. Conjunctivae are clear. Mucous membranes of the mouth are moist. Neck is supple. There is no jugular venous distention. No carotid bruit is heard. CHEST EXAMINATION: Lungs are clear to auscultation. No chest wall tenderness is noted on palpation or with deep breathing. HEART EXAMINATION: Heart regular rate and rhythm. S1, S2 heard. No murmurs, gallops or rub. ABDOMEN: Soft, nontender. Bowel sounds are heard. EXTREMITIES: 2+ peripheral pulses with no evidence of peripheral edema and no calf tenderness noted. NEUROLOGIC EXAMINATION: Patient is awake, alert and oriented x3. IMPRESSION AND PLAN: Chest pain, concerning for unstable angina Abnormal stress test Elevated troponin Hypertension Hyperlipidemia Diabetes type 2 PLAN: Start heparin drip. Resume home medications. Will plan for left heart catheterization tomorrow with Dr. Collins. N.p.o. after midnight. We will follow. I am dictating on behalf of Dr. Dez Carrillo's history/physical and assessment/plan. Past Medical History Past Medical History: Diabetes Mellitus, Hyperlipidemia, Hypertension Additional Past Medical History / Comment(s): Symptoms of parkinsons History of Any Multi-Drug Resistant Organisms: None Reported Past Surgical History: Hernia Repair, Tonsillectomy Additional Past Surgical History / Comment(s): Tonsils and adenoids, Rt thumb injury repair, repair of Right meniscus, sphincter repair, Left carotid endardectomy, Left cataract Smoking Status: Never smoker Past Alcohol Use History: Rare Past Drug Use History: None Reported Medications and Allergies Home Medications Medication Instructions Recorded Confirmed Type Aspirin EC [Ecotrin Low Dose] 81 mg PO HS 01/25/24 01/25/24 History Atorvastatin [Lipitor] 40 mg PO HS 01/25/24 01/25/24 History Glimepiride [Amaryl] 1 mg PO BID 01/25/24 01/25/24 History Isosorbide Mononitrate ER [Imdur] 30 mg PO DAILY 01/25/24 01/25/24 History Losartan/Hydrochlorothiazide 1 tab PO DAILY 01/25/24 01/25/24 History [Losartan-Hctz 100-25 mg Tab] [place]-3 Fatty Acids/Fish Oil 1 cap PO BID 01/25/24 01/25/24 History [[place]-3 Fish Oil 1,200 mg Sfgl] amLODIPine [Norvasc] 5 mg PO DAILY 01/25/24 01/25/24 History metFORMIN HCL [Glucophage] 1,000 mg PO BID 01/25/24 01/25/24 History rOPINIRole HCL [Requip] 1 mg PO TID 01/25/24 01/25/24 History rOPINIRole HCL [Requip] 3 mg PO TID 01/25/24 01/25/24 History Allergies Allergy/AdvReac Type Severity Reaction Status Date / Time No Known Allergies Allergy Verified 01/25/24 09:47 Physical Exam Vitals: Vital Signs Temp Pulse Pulse Resp BP BP Pulse Ox 01/25/24 07:44 94 L 01/25/24 02:17 97.7 F 73 16 132/65 98 01/25/24 01:27 68 17 138/73 98 01/25/24 00:08 80 16 127/71 94 L 01/24/24 23:40 97.9 F 83 16 144/78 98 Intake and Output 01/24/24 01/25/24 01/25/24 22:59 06:59 14:59 Other: # Voids 1 Weight 79.379 kg Results 01/24/24 23:57 01/24/24 23:57 Cardiac Enzymes 01/24/24 01/24/24 01/25/24 Range/Units 23:57 23:57 03:51 AST 28 (17-59) U/L Troponin I <0.012 0.032 (0.000-0.034) ng/mL 01/25/24 Range/Units 07:02 AST (17-59) U/L Troponin I 0.040 H* (0.000-0.034) ng/mL Coagulation 01/24/24 Range/Units 23:57 PT 10.5 (10.0-12.5) sec APTT 23.1 (22.0-30.0) sec CBC 01/24/24 Range/Units 23:57 WBC 4.9 (3.8-10.6) k/uL RBC 4.35 (4.30-5.90) m/uL Hgb 13.7 (13.0-17.5) gm/dL Hct 40.8 (39.0-53.0) % Plt Count 182 (150-450) k/uL Comprehensive Metabolic Panel 01/24/24 Range/Units 23:57 Sodium 137 (137-145) mmol/L Potassium 3.4 L (3.5-5.1) mmol/L Chloride 97 L (98-107) mmol/L Carbon Dioxide 32 H (22-30) mmol/L BUN 13 (9-20) mg/dL Creatinine 0.72 (0.66-1.25) mg/dL Glucose 126 H (74-99) mg/dL Calcium 8.9 (8.4-10.2) mg/dL AST 28 (17-59) U/L ALT 23 (4-49) U/L Alkaline Phosphatase 69 (38-126) U/L Total Protein 6.3 (6.3-8.2) g/dL Albumin 4.1 (3.5-5.0) g/dL Current Medications Generic Name Dose Route Start Last Admin Trade Name Freq PRN Reason Stop Dose Admin Acetaminophen 650 mg 01/25/24 01:42 Acetaminophen Tab 325 Mg Tab PO Q6HR PRN Mild Pain or Fever > 100.5 Aspirin 81 mg 01/25/24 09:00 01/25/24 08:47 Aspirin 81 Mg PO 81 mg DAILY FERNIE Administration Atorvastatin Calcium 40 mg 01/25/24 09:00 01/25/24 08:47 Atorvastatin 40 Mg Tab PO 40 mg DAILY FERNIE Administration Dextrose/Water 25 ml 01/25/24 06:49 Dextrose 50% Syringe 50 Ml IVP PER PROTOCOL PRN Hypoglycemia Protocol Dextrose/Water 50 ml 01/25/24 06:49 Dextrose 50% Syringe 50 Ml IVP PER PROTOCOL PRN Hypoglycemia Protocol Heparin Sodium (Porcine) 0 unit 01/25/24 08:45 Heparin Sodium 1,000 Un/Ml (10ml Vl) IV PER PROTOCOL PRN Low PTT Protocol Sodium Chloride 1,000 mls @ 75 mls/hr 01/25/24 07:00 01/25/24 08:47 Saline 0.9% IV 75 mls/hr .[id number] FERNIE Administration Heparin Sodium/Sodium Chloride 250 mls @ 9.525 mls/hr 01/25/24 08:45 25,000 unit/ Sodium Chloride IV .Q24H FERNIE Protocol 12 UNITS/KG/HR Magnesium Sulfate/Dextrose 1 100 mls @ 100 mls/hr 01/25/24 09:30 gm/ IV Solution IVPB 01/25/24 11:29 Q1H FERNIE Insulin Aspart 0 unit 01/25/24 07:30 01/25/24 08:52 Insulin Aspart (Novolog) 100 Unit/Ml Vial SQ Not Given ACHS FERNIE Protocol Naloxone HCl 0.2 mg 01/25/24 01:42 Naloxone 0.4 Mg/Ml 1 Ml Vial IV Q2M PRN Opioid Reversal Nitroglycerin 0.4 mg 01/25/24 01:44 Nitroglycerin Sl Tabs 0.4 Mg Tab SUBLINGUAL Q5M PRN Chest Pain Ondansetron HCl 4 mg 01/25/24 01:42 Ondansetron 4 Mg/2 Ml Vial IVP Q8HR PRN Nausea And Vomiting Pantoprazole Sodium 40 mg 01/25/24 07:30 01/25/24 08:48 Pantoprazole 40 Mg Tablet PO 40 mg [id number] FERNIE Administration Potassium Chloride 40 meq 01/25/24 09:16 Potassium Chloride Er 20 Meq Tab.Er PO 01/25/24 09:17 ONCE STA Intake and Output 01/24/24 01/25/24 01/25/24 22:59 06:59 14:59 Other: # Voids 1 Weight 79.379 kg 01/24/24 23:57 01/24/24 23:57
[2024-01-25 11:35] LABS: Partial Thromboplastin Time 82.4 sec (22.0-30.0); Prothrombin Time 10.9 sec (10.0-12.5)
[2024-01-25 12:52] LABS: Glucose,Whole Blood 222 mg/dL (70-110)
[2024-01-25 17:08] LABS: Glucose,Whole Blood 95 mg/dL (70-110)
--- NOTE | 2024-01-25 17:37 | P.PN ---
Subjective Progress Note Date: 01/25/24 Hospital course: Patient is a very pleasant 73-year-old male with a past medical history of hypertension, hyperlipidemia, diabetes mellitus. He presented to the emergency department overnight on 01/24/2024 with a chief complaint of chest pain. He underwent evaluation in the emergency department. Vital signs upon arrival show blood pressure 144/78, heart rate 83, respiratory rate 16, temp 97.9 F, and SpO2 of 98% on room air. EKG was completed showing normal sinus rhythm at 78 bpm. Labs completed and reviewed. CBC and coagulation profile were unremarkable. BMP showing hypokalemia with potassium of 3.4, hypochloremia with chloride of 97, hypercarbia with bicarb of 32, and anion gap of 8. Blood glucose 126. Magnesium was slightly low at 1.6. Troponin was negative at less than 0.012. Patient was admitted under our services with consultation to cardiology. Troponins were trended resulting at less than 0.012, 0.032, and 0.040. Patient was started on heparin infusion at this time. Physical exam: Patient seen and fully evaluated at bedside this morning. He is currently free from any chest pain or pressure visiting with family at bedside. Patient denies having any questions, needs, complaints, or concerns at this time. Cardiology evaluated this morning planning to take patient for cardiac cath tomorrow morning. Patient and family updated on plan of care and all questions answered at this time. Vital signs reviewed and stable. General: Nontoxic, no distress and appears stated age. Derm: Skin warm and dry, normal coloration for ethnicity. Head: Atraumatic, normocephalic and symmetric. Eyes: EOMs intact, no lid lag, and anicteric sclera Mouth: no lip lesions, mucus membranes moist Cardiovascular: regular rate and rhythm with normal S1S2, no murmur, positive posterior tibial pulses bilaterally, and cap refill < 2 seconds. Lungs: Respirations even, regular, and unlabored on room air. Lungs CTA bilaterally, no rhonchi, no rales, no wheezing, and no accessory muscle usage. Abdominal: soft, nontender to palpation, no guarding, no appreciable organomegaly Ext: ROM intact. No gross muscle atrophy, no edema, no contractures Neuro: Speech clear, face symmetrical and CN II-XII grossly intact with no noted focal neuro deficits Psych: Alert and oriented to person, place, time, and situation. Appropriate and pleasant affect. Assessment and Plan of Care: NSTEMI Hypertension Hyperlipidemia -Cardiology consulted, appreciate recommendations -Telemetry monitoring -Trend troponins -Cardiac diet, NPO at midnight -Continue cardiac medication regimen with aspirin 81 mg daily, atorvastatin 40 mg daily, amlodipine 5 mg daily, isosorbide mononitrate 30 mg daily, and losartan/hydrochlorothiazide 50-12.5 mg twice daily -Continue low intensity heparin infusion at 12 units/kg/h with repeat PTT every 6 hours for close monitoring of PTT for goal therapeutic range of 44 to 79 seconds. Diabetes mellitus with hyperglycemia Hold metformin and glimepiride and patient placed on glycemic protocol with NovoLog sliding scale. Data and imaging reviewed: Vital signs reviewed. Blood pressure 134/72, heart rate 67, respiratory rate 17, temp 98.0 F, and SpO2 of 100% on room air. Troponins were trended resulting at less than 0.012, 0.032, and 0.040. CODE STATUS: Full code DVT prophylaxis: Heparin infusion Anticipated discharge date: Clinical course to determine Anticipated discharge place: Clinical course to determine Patient was seen independently by Nurse Pracitioner. This document was prepared using [employer] dictation software. Please allow for errors in tax compliance manager, while rare they do occur. I reviewed the documentation as provided by the VALERIO above, who is the original author of this note. I agree with the documented assessment and plan, with the following changes: none Objective - Vital Signs Vital signs: Vital Signs Temp 97.7 F 01/25/24 02:17 Pulse 73 01/25/24 02:17 Resp 16 01/25/24 02:17 BP 132/65 01/25/24 02:17 Pulse Ox 94 L 01/25/24 07:44 FiO2 Intake & Output 01/24/24 01/25/24 01/25/24 18:59 06:59 18:59 Weight 79.379 kg Other: # Voids 1 - Labs CBC & Chem 7: 01/26/24 06:28 01/27/24 08:40 Labs: Abnormal Lab Results - Last 24 Hours (Table) 01/24/24 01/24/24 01/25/24 Range/Units 23:57 23:57 07:02 Lymphocytes # 0.9 L (1.0-4.8) k/uL Potassium 3.4 L (3.5-5.1) mmol/L Chloride 97 L (98-107) mmol/L Carbon Dioxide 32 H (22-30) mmol/L Glucose 126 H (74-99) mg/dL Troponin I 0.040 H* (0.000-0.034) ng/mL
[2024-01-25] MEDS: HEPARIN SODIUM 1,000 UN/ML (10ML VL) IV PRN (17:45)
[2024-01-25 20:27] LABS: Glucose,Whole Blood 123 mg/dL (70-110)
[2024-01-25] MEDS ORDERED: NON FORMULARY DRUG (Omega-3 Fatty Acids/Fish Oil [Omega-3 Fish Oil 1,200 Mg Sfgl] 1 EACH C PO SCH (21:00)
[2024-01-26 06:03] LABS: Glucose,Whole Blood 124 mg/dL (70-110)
[2024-01-26] MEDS ORDERED: HEPARIN SODIUM,PORCINE (1 ML) 2,500 UNIT in SODIUM CHLORIDE 0.9% 250 ML IRRIGATION PRN (07:00)
[2024-01-26] MEDS ORDERED: HEPARIN SODIUM,PORCINE 10,000 UNIT in SODIUM CHLORIDE 0.9% 1,000 ML IRRIGATION PRN (07:00)
[2024-01-26 07:20] LABS: Prothrombin Time 11.3 sec (10.0-12.5)
[2024-01-26] MEDS ORDERED: ALPRAZolam 0.25 MG TAB PO PRN (07:41)
[2024-01-26] MEDS ORDERED: ALPRAZolam 0.5 MG TAB PO PRN (07:41)
[2024-01-26] MEDS ORDERED: NITROGLYCERIN SL TABS 0.4 MG TAB SUBLINGUAL PRN ×2 (07:41→09:57)
[2024-01-26] MEDS ORDERED: VERAPAMIL 2.5 MG/ML 2 ML AMP ONE (07:55)
[2024-01-26] MEDS ORDERED: fentaNYL (PF) 50 MCG/ML 2 ML AMP ONE (07:55)
[2024-01-26] MEDS ORDERED: HEPARIN SODIUM 1,000 UN/ML (10ML VL) ONE (07:55)
[2024-01-26] MEDS ORDERED: LIDOCAINE 1% INJ 10MG/ML (20 ML MDV) ONE (07:55)
[2024-01-26] MEDS: ASPIRIN 325 MG TAB PO STA (07:57)
[2024-01-26] MEDS: LOSARTAN-HCTZ 50-12.5 MG 1 EACH TAB PO SCH (07:57)
[2024-01-26] MEDS: ISOSORBIDE MONONITRATE ER 30 MG TAB.ER.24H PO SCH (07:58)
[2024-01-26] MEDS: ATORVASTATIN 80 MG TAB PO STA (07:58)
[2024-01-26] MEDS: fentaNYL (PF) 50 MCG/ML 2 ML AMP IVP ONE (08:42)
[2024-01-26] MEDS: LIDOCAINE 1% INJ 10MG/ML (20 ML MDV) SQ ONE (08:45)
[2024-01-26] MEDS: VERAPAMIL SYRINGE (5 MG/10 ML) INTRAARTER ONE (08:48)
[2024-01-26] MEDS: HEPARIN SODIUM 1,000 UN/ML (10ML VL) IVP ONE ×3 (08:51→09:07)
[2024-01-26] MEDS ORDERED: TICAGRELOR 90 MG TAB ONE (08:55)
[2024-01-26] MEDS: TICAGRELOR 90 MG TAB PO ONE (09:01)
[2024-01-26] MEDS: IOPAMIDOL-370 100ML BTL INJ ONE ×2 (09:35→09:37)
[2024-01-26] MEDS: SODIUM CHLORIDE 0.9% 1,000 ML IV ONE (09:39)
[2024-01-26] MEDS ORDERED: ATROPINE SULFATE 0.1 MG/ML 10ML SYRINGE IV PRN (09:57)
[2024-01-26] MEDS ORDERED: ZOLPIDEM 5 MG TAB PO PRN (09:57)
[2024-01-26] MEDS ORDERED: RX INFO: IV CONTRAST WAS GIVEN 1 EACH MISC MISCELLANE PRN (09:57)
[2024-01-26] MEDS ORDERED: MAG HYDROX/AL HYDROX/SIMETH 30 ML CUP PO PRN (09:57)
--- NOTE | 2024-01-26 10:06 | P.CARDCATH ---
Date of Procedure: 01/26/24 Description of Procedure: Cardiac Catheterization: The patient is a 73-year-old male with a known history of hypertension, hyperlipidemia, diabetes mellitus and carotid disease who has been complaining of episodes of chest discomfort and had an abnormal stress test with reversible anteroapical and anteroseptal wall defect. He was scheduled to undergo coronary angiography on January 26 but presented with an episode of rest pain with minimal troponin elevation. Recommendations were made regarding cardiac ca theterization, the risks and the complications were discussed with the patient who is in full understanding and agreement. 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 Using Xylocaine Anesthesia and modified Seldinger technique, a 6-Ugandan sheath was introduced in the right radial artery . Subsequently, selective coronary angiography was performed using a 5-Ugandan 3.5 bend Alejo catheter. Multiple views of the coronary artery including hemiaxial views were obtained. The 5 [place]an pigtail catheter was used to cross the aortic valve and LVEDP was calculated. PCI: After removing the catheters a 6 [place] CLS 3.5 guiding catheter was introduced into the system and after cannulating the left main a 0.014 BMW J-wire was positioned in the distal LAD. Subsequently a 2.5 x 12 mm NC trek balloon was advanced and 1 inflation at 8 jose was done. Subsequently a Glow [place] eye IVUS catheter was introduced and imaging was obtained and revealed a distal segment of 3 to 3.5 mm and proximally 4.5 to 5 mm in diameter, with eccentric calcification noted. Subsequently a 3.0 x 38 mm Xience faith point stent was advanced and deployed at 16 jose, after removing the balloon repeat IVUS imaging was performed and then 3.25 x 15 mm NC trek balloon was advanced and multiple inflation in the distal and mid segment of the stent where performed at 10 jose. Proximally a 4.0 x 12 mm NC trek balloon was advanced and 2 inflations at 10 jose were done. Repeat IVUS imaging was performed and then a 4.5 x 12 mm NC trek balloon was advanced and 2 inflations proximally at 10 jose were done. After removing the wire images were obtained and revealed stable successful stenting. Following that, catheter and sheath were removed. Hemostasis was obtained with deployment of vascular band . There was no immediate complication. Patient was returned to room in stable condition. Of note, the patient received a total of 7500 units of intravenous heparin as well as intra-arterial verapamil. He received an oral loading dose of ticagrelor. His ACT was monitored. He had no chest discomfort or EKG changes with the inflations. Findings: Fluoroscopy: Calcifications of the proximal LAD was noted Left main: This is a large size vessel, bifurcating into LAD and left circumflex, left main has no obstructive disease. LAD: This is a large size vessel, reaching to the apex, giving rise to 2 diagonal branch of small caliber. The LAD proximally is calcified and has an eccentric 95 to 99% stenosis. There is intimal disease of 50 to 60% at the takeoff of the second diagonal branch. The rest of the vessel has no high-grade stenosis. Left circumflex: This is a large nondominant vessel, giving rise to a large obtuse marginal branch. The proximal left circumflex has a 50 to 60% plaque, the rest of the vessel has no high-grade stenosis. RCA: This is a large dominant vessel, bifurcating distally to PDA and PLV. The mid right coronary artery has an area of stenosis of about 60%, the rest of the vessel has no high-grade stenosis Left Ventriculogram: Not performed Hemodynamics: There was no gradient across aortic valve, LVEDP was 16-20 mmHg Conclusion: 1. Calcified proximal LAD 2. Severe stenosis in the proximal LAD 3. Moderate disease in the proximal left circumflex and mid RCA 4. Successful stenting of the proximal LAD with reduction of stenosis from 95% to less than 5% with IVUS imaging with CORINNE-3 flow Recommendations: The patient will continue on aspirin and ticagrelor without any interruption for at least 1 year in addition to aggressive coronary risks modifications and maintaining LDL below 70 mg/dL. The findings and the recommendations were discussed with the patient and the family and they were in full understanding and agreement. Duration of sedation is 53 minutes.
--- NOTE | 2024-01-26 10:35 | P.PN ---
Subjective Progress Note Date: 01/26/24 Chief complaint: chest pain History of present illness: History of present illness: Patient is a pleasant 73-year-old male with significant past medical history of hypertension, hyperlipidemia, diabetes type 2, carotid stenosis status post endarterectomy on the left who presented with complaints of chest pain. He sees Dr. Collins in the office and had recent cardiac workup. Echocardiogram 01/19/2024 with EF 55-60%, mildmod mitral regurgitation. MPI 01/21/[address] depression as well as anteroapical and anteroseptal ischemia. Started on Imdur a couple days ago. He was scheduled for left heart cath on 01/[address] Collins. He reports that yesterday evening he laid down to go to bed and noticed a slight heartburn and his left wrist was hurting. He tried to wait this out however left arm pain got more significant and therefore he came to the emergency department. Prior to that for the past few weeks he has been having intermittent chest pain been worse with exertion. He denies any shortness of breath, dizziness, palpitations, or syncope. Troponins <0.012, 0.032, 0.04 creatinine 0.72, potassium 3.7. This morning denies any chest pain or pressure or left arm pain. LDL from 10/2023 with . 01/25 Patient has been maintained on heparin drip. He denies having any chest pain now. He is scheduled for cardiac catheterization today with Dr. Collins. Blood pressure 121/73, heart rate 65, pulse ox 97% on room air. PHYSICAL EXAMINATION: This is a 73-year-old male in no apparent distress at the time of my examination. HEENT: Head is atraumatic, normocephalic. Pupils are equal, round. Sclerae anicteric. Conjunctivae are clear. Mucous membranes of the mouth are moist. Neck is supple. There is no jugular venous distention. No carotid bruit is heard. CHEST EXAMINATION: Lungs are clear to auscultation. No chest wall tenderness is noted on palpation or with deep breathing. HEART EXAMINATION: Heart regular rate and rhythm. S1, S2 heard. No murmurs, gallops or rub. ABDOMEN: Soft, nontender. Bowel sounds are heard. EXTREMITIES: 2+ peripheral pulses with no evidence of peripheral edema and no calf tenderness noted. NEUROLOGIC EXAMINATION: Patient is awake, alert and oriented x3. IMPRESSION AND PLAN: Chest pain, concerning for unstable angina Abnormal stress test Elevated troponin Hypertension Hyperlipidemia Diabetes type 2 PLAN: Discontinue heparin drip Continue current cardiac medications Schedule patient for left heart catheterization today with Dr. Collins Continue n.p.o. status Further recommendations as patient progresses. Nurse practitioner note has been reviewed, I agree with documented findings and plan of care. Patient was seen and examined. Objective - Vital Signs Vital signs: Vital Signs Temp 97.6 F 01/26/24 02:16 Pulse 79 01/26/24 02:16 Resp 15 01/26/24 02:16 BP 139/78 01/26/24 02:16 Pulse Ox 97 01/26/24 02:16 FiO2 Intake & Output 01/25/24 01/26/24 01/26/24 18:59 06:59 18:59 Intake Total 308.866 77.791 47.173 Balance 308.866 77.791 47.173 Intake: Intake, IV Titration 72.866 77.791 47.173 Amount Heparin Sod,Pork in 0.45% 72.866 77.791 47.173 NaCl 25,000 unit In 0.45 % NaCl 1 250ml.bag @ 12 UNITS/KG/HR 9.525 mls/hr IV .Q24H [facility] Rx#: [id number] Oral 236 Other: Voiding Method Toilet # Voids 3 1 - Labs CBC & Chem 7: 01/25/24 10:45 01/24/24 23:57 Labs: Abnormal Lab Results - Last 24 Hours (Table) 01/25/24 01/25/24 01/25/24 Range/Units 07:02 10:45 10:45 Lymphocytes # 0.9 L (1.0-4.8) k/uL APTT 82.4 H (22.0-30.0) sec POC Glucose (mg/dL) (70-110) mg/dL Hemoglobin A1c (<=6.0) % Troponin I 0.040 H* (0.000-0.034) ng/mL 01/25/24 01/25/24 01/25/24 Range/Units 12:51 16:12 16:12 Lymphocytes # (1.0-4.8) k/uL APTT 40.6 H (22.0-30.0) sec POC Glucose (mg/dL) 222 H (70-110) mg/dL Hemoglobin A1c 6.4 H (<=6.0) % Troponin I (0.000-0.034) ng/mL 01/25/24 01/25/24 01/26/24 Range/Units 20:25 23:46 06:01 Lymphocytes # (1.0-4.8) k/uL APTT 143.8 H* (22.0-30.0) sec POC Glucose (mg/dL) 123 H 124 H (70-110) mg/dL Hemoglobin A1c (<=6.0) % Troponin I (0.000-0.034) ng/mL 01/26/24 Range/Units 06:28 Lymphocytes # (1.0-4.8) k/uL APTT 111.0 H* (22.0-30.0) sec POC Glucose (mg/dL) (70-110) mg/dL Hemoglobin A1c (<=6.0) % Troponin I (0.000-0.034) ng/mL
[2024-01-26 10:44] LABS: Basophils # (A) 0.03 X 10*3/uL (0.00-0.10); Basophils % (A) 0.5 %; Eosinophils % (A) 1.7 %; HCT 43.6 % (39.6-50.0); HGB 14.2 g/dL (13.0-17.0); Lymphocytes # (A) 1.06 X 10*3/uL (0.90-5.00); Lymphocytes % (A) 17.9 %; MCH 31.2 pg (27.0-32.0); MCHC 32.6 g/dL (32.0-37.0); MCV 95.8 FL (80.0-97.0); Mean Platelet Volume 10.8 FL (9.5-12.2); Monocytes % (A) 8.4 %; NRBC Per 100 WBC 0 X 10*3/uL (0.00-0.01); Neutrophils # (A) 4.21 X 10*3/uL (1.80-7.70); Neutrophils % (A) 71.2 %; Platelet Count 182 X 10*3/uL (140-440); RBC 4.55 X 10*6/uL (4.40-5.60); RDW 13.2 % (11.5-14.5); WBC 5.92 X 10*3/uL (4.50-10.00)
[2024-01-26] MEDS: SODIUM CHLORIDE 0.9% 1,000 ML in EMPTY BAG 1 BAG IV SCH (10:45)
[2024-01-26 11:32] LABS: Glucose,Whole Blood 108 mg/dL (70-110)
[2024-01-26 13:34] LABS: Magnesium 1.8 mg/dL (1.5-2.4)
[2024-01-26 14:45] LABS: ALT 24 U/L (10-49); AST 31 U/L (14-35); Albumin 4.3 g/dL (3.8-4.9); Albumin/Globulin Ratio 2.05 Ratio (1.60-3.17); Alkaline Phosphatase 77 U/L (41-126); BUN/Creat Ratio 13.88 Ratio (12.00-20.00); Blood Urea Nitrogen 11.1 mg/dL (9.0-27.0); Calcium 9.1 mg/dL (8.7-10.3); Carbon Dioxide 23.5 mmol/L (21.6-31.8); Chloride 102 mmol/L (96-109); Globulin 2.1 g/dL (1.6-3.3); Glucose 123 mg/dL (70-110); Potassium 4.3 mmol/L (3.5-5.5); Sodium 141 mmol/L (135-145); Total Bilirubin 0.4 mg/dL (0.3-1.2); Total Protein 6.4 g/dL (6.2-8.2)
--- NOTE | 2024-01-26 16:03 | P.PN ---
Subjective Progress Note Date: 01/26/24 Hospital course: Patient is a very pleasant 73-year-old male with a past medical history of hypertension, hyperlipidemia, diabetes mellitus. He presented to the emergency department overnight on 01/24/2024 with a chief complaint of chest pain. He underwent evaluation in the emergency department. Vital signs upon arrival show blood pressure 144/78, heart rate 83, respiratory rate 16, temp 97.9 F, and SpO2 of 98% on room air. EKG was completed showing normal sinus rhythm at 78 b pm. Labs completed and reviewed. CBC and coagulation profile were unremarkable. BMP showing hypokalemia with potassium of 3.4, hypochloremia with chloride of 97, hypercarbia with bicarb of 32, and anion gap of 8. Blood glucose 126. Magnesium was slightly low at 1.6. Troponin was negative at less than 0.012. Patient was admitted under our services with consultation to cardiology. Troponins were trended resulting at less than 0.012, 0.032, and 0.040. Patient was started on heparin infusion at this time. He was evaluated by cardiology and taken for cardiac cath which revealed severe stenosis in the proximal LAD along with moderate disease in the proximal left circumflex and mid RCA. Patient underwent successful stenting of proximal LAD with reduction of stenosis from 95% to less than 5% per cardiac cath report. Physical exam: Patient seen and fully evaluated at bedside this morning upon return from cardiac cath. He is currently free from any chest pain or complaints at this time. TR band in place to right wrist intact with no signs of bleeding or hematoma formation. Vital signs reviewed and stable. General: Nontoxic, no distress and appears stated age. Derm: Skin warm and dry, normal coloration for ethnicity. Head: Atraumatic, normocephalic and symmetric. Eyes: EOMs intact, no lid lag, and anicteric sclera Mouth: no lip lesions, mucus membranes moist Cardiovascular: regular rate and rhythm with normal S1S2, no murmur, positive posterior tibial pulses bilaterally, and cap refill < 2 seconds. Lungs: Respirations even, regular, and unlabored on room air. Lungs CTA bilaterally, no rhonchi, no rales, no wheezing, and no accessory muscle usage. Abdominal: soft, nontender to palpation, no guarding, no appreciable organomegaly Ext: ROM intact. No gross muscle atrophy, no edema, no contractures Neuro: Speech clear, face symmetrical and CN II-XII grossly intact with no noted focal neuro deficits Psych: Alert and oriented to person, place, time, and situation. Appropriate and pleasant affect. Assessment and Plan of Care: NSTEMI Hypertension Hyperlipidemia -Cardiology following and took patient for cardiac cath resulting in successful stenting of proximal LAD. -Telemetry monitoring -Cardiac diet -Continue cardiac medication regimen with aspirin 81 mg daily, Brilinta 90 mg twice daily, atorvastatin 40 mg daily, amlodipine 5 mg daily, isosorbide m ononitrate 30 mg daily, and losartan/hydrochlorothiazide 50-12.5 mg twice daily Diabetes mellitus with hyperglycemia Hold metformin and glimepiride and patient placed on glycemic protocol with NovoLog sliding scale. Data and imaging reviewed: Vital signs reviewed. Blood pressure 106/56, heart rate 65, respiratory rate 14, temp 97.7 F, and SpO2 of 96% on room air. CBC unremarkable. PTT showing supratherapeutic levels at 111. BMP showing mildly elevated anion gap of 15.50 otherwise normal findings. Magnesium 1.8. Liver profile unremarkable. Blood glucose 123. CODE STATUS: Full code DVT prophylaxis: Heparin infusion Anticipated discharge date: Clinical course to determine Anticipated discharge place: Clinical course to determine Patient was seen independently by Nurse Pracitioner. This document was prepared using [employer] dictation software. Please allow for errors in project manager finance, while rare they do occur. I reviewed the documentation as provided by the VALERIO above, who is the original author of this note. I agree with the documented assessment and plan, with the following changes: none Objective - Vital Signs Vital signs: Vital Signs Temp 97.6 F 01/26/24 07:00 Pulse 65 01/26/24 07:00 Resp 16 01/26/24 07:00 BP 121/73 01/26/24 07:00 Pulse Ox 97 01/26/24 07:00 FiO2 Intake & Output 01/25/24 01/26/24 01/26/24 18:59 06:59 18:59 Intake Total 308.866 77.791 47.173 Balance 308.866 77.791 47.173 Intake: Intake, IV Titration 72.866 77.791 47.173 Amount Heparin Sod,Pork in 0.45% 72.866 77.791 47.173 NaCl 25,000 unit In 0.45 % NaCl 1 250ml.bag @ 12 UNITS/KG/HR 9.525 mls/hr IV .[facility] Rx#: [id number] Oral 236 Other: Voiding Method Toilet # Voids 3 1 - Labs CBC & Chem 7: 01/26/24 06:28 01/27/24 08:40 Labs: Abnormal Lab Results - Last 24 Hours (Table) 01/25/24 01/25/24 01/25/24 Range/Units 10:45 10:45 12:51 Lymphocytes # 0.9 L (1.0-4.8) k/uL APTT 82.4 H (22.0-30.0) sec POC Glucose (mg/dL) 222 H (70-110) mg/dL Hemoglobin A1c (<=6.0) % 01/25/24 01/25/24 01/25/24 Range/Units 16:12 16:12 20:25 Lymphocytes # (1.0-4.8) k/uL APTT 40.6 H (22.0-30.0) sec POC Glucose (mg/dL) 123 H (70-110) mg/dL Hemoglobin A1c 6.4 H (<=6.0) % 01/25/24 01/26/24 01/26/24 Range/Units 23:46 06:01 06:28 Lymphocytes # (1.0-4.8) k/uL APTT 143.8 H* 111.0 H* (22.0-30.0) sec POC Glucose (mg/dL) 124 H (70-110) mg/dL Hemoglobin A1c (<=6.0) %
[2024-01-26 17:37] LABS: Glucose,Whole Blood 116 mg/dL (70-110)
[2024-01-26 20:51] LABS: Glucose,Whole Blood 172 mg/dL (70-110)
[2024-01-26] MEDS: TICAGRELOR 90 MG TAB PO SCH (21:16)
[2024-01-27 06:35] LABS: Glucose,Whole Blood 121 mg/dL (70-110)
[2024-01-27 07:36] VITALS: BP 133/67; PULSE 75; RESP 16; TEMP 98.5
[2024-01-27] MEDS: ASPIRIN 81 MG PO SCH (08:36)
[2024-01-27 10:03] LABS: ALT 26 U/L (4-49); AST 29 U/L (17-59); African American GFR (CKD) >90 (>60 ml/min/1.73 sqM); Albumin 4.3 g/dL (3.5-5.0); Albumin/Globulin Ratio 1.7; Alkaline Phosphatase 79 U/L (38-126); Anion Gap 8 mmol/L; Blood Urea Nitrogen 9 mg/dL (9-20); Calcium 9.1 mg/dL (8.4-10.2); Carbon Dioxide 29 mmol/L (22-30); Chloride 101 mmol/L (98-107); Globulin 2.5 g/dL; Glucose 102 mg/dL (74-99); Non-African American GFR(CKD) >90 (>60 ml/min/1.73 sqM); Potassium 3.7 mmol/L (3.5-5.1); Sodium 138 mmol/L (137-145); Total Bilirubin 0.8 mg/dL (0.2-1.3); Total Protein 6.8 g/dL (6.3-8.2)
--- NOTE | 2024-01-27 10:09 | P.PN ---
Subjective Progress Note Date: 01/27/24 Chief complaint: chest pain History of present illness: History of present illness: Patient is a pleasant 73-year-old male with significant past medical history of hypertension, hyperlipidemia, diabetes type 2, carotid stenosis status post endarterectomy on the left who presented with complaints of chest pain. He sees Dr. Collins in the office and had recent cardiac workup. Echocardiogram 01/19/2024 with EF 55-60%, mildmod mitral regurgitation. MPI 01/21/[address] depression as well as anteroapical and anteroseptal ischemia. Started on Imdur a couple days ago. He was scheduled for left heart cath on 01/[address] Collins. He reports that yesterday evening he laid down to go to bed and noticed a slight heartburn and his left wrist was hurting. He tried to wait this out however left arm pain got more significant and therefore he came to the emergency department. Prior to that for the past few weeks he has been having intermittent chest pain been worse with exertion. He denies any shortness of breath, dizziness, palpitations, or syncope. Troponins <0.012, 0.032, 0.04 creatinine 0.72, potassium 3.7. This morning denies any chest pain or pressure or left arm pain. LDL from 10/2023 with . 01/25 Patient has been maintained on heparin drip. He denies having any chest pain now. He is scheduled for cardiac catheterization today with Dr. Collins. Blood pressure 121/73, heart rate 65, pulse ox 97% on room air. 01/26 Yesterday, patient underwent cardiac catheterization with Dr. Collins that revealed calcified proximal LAD. Severe stenosis in the proximal LAD. Moderate disease in the proximal left circumflex and mid RCA. He underwent successful stenting of the proximal LAD with. Patient was started on Brilinta. He currently denies having any chest pain, no shortness of breath, no palpitations, no lightheadedness or dizziness. PHYSICAL EXAMINATION: This is a 73-year-old male in no apparent distress at the time of my examination. HEENT: Head is atraumatic, normocephalic. Pupils are equal, round. Sclerae anicteric. Conjunctivae are clear. Mucous membranes of the mouth are moist. Neck is supple. There is no jugular venous distention. No carotid bruit is heard. CHEST EXAMINATION: Lungs are clear to auscultation. No chest wall tenderness is noted on palpation or with deep breathing. HEART EXAMINATION: Heart regular rate and rhythm. S1, S2 heard. No murmurs, gallops or rub. ABDOMEN: Soft, nontender. Bowel sounds are heard. EXTREMITIES: 2+ peripheral pulses with no evidence of peripheral edema and no calf tenderness noted. NEUROLOGIC EXAMINATION: Patient is awake, alert and oriented x3. IMPRESSION AND PLAN: Chest pain, concerning for unstable angina Abnormal stress test Elevated troponin Hypertension Hyperlipidemia Diabetes type 2 PLAN: Continue current cardiac medications New prescriptions have been sent to his pharmacy Patient is cleared for discharge and may follow-up with Dr. Collins in 1 week. Nurse practitioner note has been reviewed, I agree with documented findings and plan of care. Patient was seen and examined. Objective - Vital Signs Vital signs: Vital Signs Temp 98.5 F 01/27/24 07:05 Pulse 75 01/27/24 07:05 Resp 16 01/27/24 07:05 BP 133/67 01/27/24 07:05 Pulse Ox 96 01/27/24 07:05 FiO2 Intake & Output 01/26/24 01/27/24 01/27/24 18:59 06:59 18:59 Intake Total 297.173 Output Total 200 Balance 97.173 Intake: IV 250 Intake, IV Titration 47.173 Amount Heparin Sod,Pork in 0.45% 47.173 NaCl 25,000 unit In 0.45 % NaCl 1 250ml.bag @ 12 UNITS/KG/HR 9.525 mls/hr IV .Q24H [facility] Rx#: [id number] Output: Urine 200 Other: Voiding Method Toilet # Voids 2 1 - Labs CBC & Chem 7: 01/26/24 06:28 01/26/24 06:28 Labs: Abnormal Lab Results - Last 24 Hours (Table) 01/26/24 01/26/24 01/26/24 Range/Units 06:28 17:36 20:49 Anion Gap 15.50 H (4.00-12.00) mmol/L Glucose 123 H (70-110) mg/dL POC Glucose (mg/dL) 116 H 172 H (70-110) mg/dL 01/27/24 Range/Units 06:34 Anion Gap (4.00-12.00) mmol/L Glucose (70-110) mg/dL POC Glucose (mg/dL) 121 H (70-110) mg/dL
--- NOTE | 2024-01-27 11:12 | P.DS ---
Providers Date of admission: 01/26/24 10:03 Expected date of discharge: 01/27/24 Attending physician: Zuleyka Farah MD Consults: 01/25/24 01:42 Consult Physician Routine Consulting Provider: Chaitanya Collins Consult Reason/Comments: CP Do you want consulting provider notified?: Yes 01/26/24 09:57 Consult Physician Routine Consulting Provider: [facility] Consult Reason/Comments: Post Interventional Patient Do you want consulting provider notified?: Already Contacted Primary care physician: Xu Lundberg MD Hospital Course: Discharge Diagnosis: NSTEMI status post successful stenting of proximal LAD. Hypertension Hyperlipidemia Diabetes mellitus with hyperglycemia Hospital Course: Patient is a very pleasant 73-year-old male with a past medical history of hypertension, hyperlipidemia, diabetes mellitus. He presented to the emergency department overnight on 01/24/2024 with a chief complaint of chest pain. He underwent evaluation in the emergency department. Vital signs upon arrival show blood pressure 144/78, heart rate 83, respiratory rate 16, temp 97.9 F, and SpO2 of 98% on room air. EKG was completed showing normal sinus rhythm at 78 bpm. Labs completed and reviewed. CBC and coagulation profile were unremarkable. BMP showing hypokalemia with potassium of 3.4, hypochloremia with chloride of 97, hypercarbia with bicarb of 32, and anion gap of 8. Blood glucose 126. Magnesium was slightly low at 1.6. Troponin was negative at less than 0.012. Patient was admitted under our services with consultation to cardiology. Troponins were trended resulting at less than 0.012, 0.032, and 0.040. Patient was started on heparin infusion at this time. He was evaluated by cardiology and taken for cardiac cath which revealed severe stenosis in the proximal LAD along with moderate disease in the proximal left circumflex and mid RCA. Patient underwent successful stenting of proximal LAD with reduction of stenosis from 95% to less than 5% per cardiac cath report. Physical exam: Patient seen and fully evaluated at bedside he is free from chest pain or any other complaints at this time. Cardiac cath access site right wrist showing no signs of hematoma or bleeding. Vital signs reviewed and stable. General: Nontoxic, no distress and appears stated age. Derm: Skin warm and dry, normal coloration for ethnicity. Head: Atraumatic, normocephalic and symmetric. Eyes: EOMs intact, no lid lag, and anicteric sclera Mouth: no lip lesions, mucus membranes moist Cardiovascular: regular rate and rhythm with normal S1S2, no murmur, positive posterior tibial pulses bilaterally, and cap refill < 2 seconds. Lungs: Respirations even, regular, and unlabored on room air. Lungs CTA bilaterally, no rhonchi, no rales, no wheezing, and no accessory muscle usage. Abdominal: soft, nontender to palpation, no guarding, no appreciable organomegaly Ext: ROM intact. No gross muscle atrophy, no edema, no contractures Neuro: Speech clear, face symmetrical and CN II-XII grossly intact with no noted focal neuro deficits Psych: Alert and oriented to person, place, time, and situation. Appropriate and pleasant affect. A total of 33 minutes of time were spent preparing this complex discharge summary. Pt was discharged on 01/27/2024 at 11:10 AM. Patient was seen independently by Nurse Practitioner. This document was prepared using [employer] dictation software. Please allow for errors in lean engineer while rare they do occur. I reviewed the documentation as provided by the VALERIO above, who is the original author of this note. I agree with the documented assessment and plan, with the following changes: none Patient Condition at Discharge: Stable Plan - Discharge Summary New Discharge Prescriptions: New Ticagrelor [Brilinta] 90 mg PO BID #180 tab Nitroglycerin Sl Tabs [Nitrostat] 0.4 mg SUBLINGUAL Q5M PRN #25 tab PRN Reason: Chest Pain Pantoprazole [Protonix] 40 mg PO AC-BRKFST 30 Days #30 tab Continue rOPINIRole HCL [Requip] 3 mg PO TID Atorvastatin [Lipitor] 40 mg PO HS Aspirin EC [Ecotrin Low Dose] 81 mg PO HS amLODIPine [Norvasc] 5 mg PO DAILY Cofield-3 Fatty Acids/Fish Oil [Cofield-3 Fish Oil 1,200 mg Sfgl] 1 cap PO BID rOPINIRole HCL [Requip] 1 mg PO TID metFORMIN HCL [Glucophage] 1,000 mg PO BID Losartan/Hydrochlorothiazide [Losartan-Hctz 100-25 mg Tab] 1 tab PO DAILY Glimepiride [Amaryl] 1 mg PO BID Isosorbide Mononitrate ER [Imdur] 30 mg PO DAILY Discharge Medication List Aspirin EC [Ecotrin Low Dose] 81 mg PO HS 01/25/24 [History] Atorvastatin [Lipitor] 40 mg PO HS 01/25/24 [History] Glimepiride [Amaryl] 1 mg PO BID 01/25/24 [History] Isosorbide Mononitrate ER [Imdur] 30 mg PO DAILY 01/25/24 [History] Losartan/Hydrochlorothiazide [Losartan-Hctz 100-25 mg Tab] 1 tab PO DAILY 01/25/24 [History] Cofield-3 Fatty Acids/Fish Oil [Cofield-3 Fish Oil 1,200 mg Sfgl] 1 cap PO BID 01/25/24 [History] amLODIPine [Norvasc] 5 mg PO DAILY 01/25/24 [History] metFORMIN HCL [Glucophage] 1,000 mg PO BID 01/25/24 [History] rOPINIRole HCL [Requip] 1 mg PO TID 01/25/24 [History] rOPINIRole HCL [Requip] 3 mg PO TID 01/25/24 [History] Nitroglycerin Sl Tabs [Nitrostat] 0.4 mg SUBLINGUAL Q5M PRN #25 tab 01/27/24 [Rx] Pantoprazole [Protonix] 40 mg PO AC-BRKFST 30 Days #30 tab 01/27/24 [Rx] Ticagrelor [Brilinta] 90 mg PO BID #180 tab 01/27/24 [Rx] Follow up Appointment(s)/Referral(s): Chaitanya Collins MD [STAFF PHYSICIAN] - 1 Week (FEBRUARY 19 at 8:45AM) Xu Lundberg MD [Primary Care Provider] - 1-2 days Patient Instructions/Handouts: *Surgery [facility] - After Heart Catheterization - [employer] Instructions, Heart Catheterization (DC) Activity/Diet/Wound Care/Special Instructions: Activity: As tolerated. Take breaks as needed. Diet: Heart healthy and carb consistent diet. Avoid salts, or foods with hidden salts such as canned or boxed foods and frozen dinners. Extra salt makes your heart work harder and traps the fluid in your body for longer. Special Instructions: Take all of your medications as directed and remember to keep all of your doctor's appointments and follow-up as needed. Thank you for allowing us to participate in your care, it was truly a pleasure having you for our patient!!! NO FLEXING AT THE WRIST OR LIFTING ANYTHING HEAVIER THAN 5 POUNDS IN 5 DAYS DO NOT SUBMERGE WRIST IN WATER FOR 3 DAYS IF SITE BLEEDS, HOLD PRESSURE FOR 10MIN IF DOESN'T SUBSIDE HAVE SOMEONE DRIVE YOU TO ER RETURN TO ER FOR NUMBNESS, TEMPERATURE, OR COLOR CHANGE IN EXTREMITY. Discharge Disposition: HOME SELF-CARE
== END 2024-01-27 13:11 | disposition home or self-care (01) | DRG 322 ==
LOC: EC 23:38 → 6NMEDSUR 01-25 01:42 → OBSVTOIN 01-26 10:03
PROVIDERS: ADMIT Internal Medicine; ATTEND Internal Medicine
PROC: 4A023N7 Measurement of Cardiac Sampling and Pressure, Left Heart, Percutaneous Approach (ICD-10-PCS; principal; 2024-01-26 11:00)
PROC: 027034Z Dilation of Coronary Artery, One Artery with Drug-eluting Intraluminal Device, Percutaneous Approach (ICD-10-PCS; principal; 2024-01-26 11:00)
PROC: B2111ZZ Fluoroscopy of Multiple Coronary Arteries using Low Osmolar Contrast (ICD-10-PCS; principal; 2024-01-26 11:00)
PROC: B240ZZ3 Ultrasonography of Single Coronary Artery, Intravascular (ICD-10-PCS; principal; 2024-01-26 11:00)
DX: I21.4 Non-ST elevation (NSTEMI) myocardial infarction (principal); I25.10 Atherosclerotic heart disease of native coronary artery without angina pectoris; E11.65 Type 2 diabetes mellitus with hyperglycemia; I10 Essential (primary) hypertension; E87.8 Other disorders of electrolyte and fluid balance, not elsewhere classified; E87.6 Hypokalemia; E78.5 Hyperlipidemia, unspecified; I34.0 Nonrheumatic mitral (valve) insufficiency; Z79.84 Long term (current) use of oral hypoglycemic drugs; Z79.899 Other long term (current) drug therapy; Z28.21 Immunization not carried out because of patient refusal; Z79.82 Long term (current) use of aspirin
CPT/HCPCS: 36415; 71046; 80053; 83036; 83735; 84484; 85025; 85610; 85730; 92978; 93005; 93458; 94760; 99285

== ENCOUNTER → 2024-08-28 | Outpatient (CLI) | payer MEDICARE ==
[2024-08-28 13:07] LABS: ALT 21 U/L (10-49); AST 24 U/L (14-35); Albumin 4.6 g/dL (3.8-4.9); Alkaline Phosphatase 86 U/L (41-126); Blood Urea Nitrogen 12.8 mg/dL (9.0-27.0); Calcium 9.6 mg/dL (8.7-10.3); Carbon Dioxide 30.7 mmol/L (21.6-31.8); Chloride 100 mmol/L (96-109); Chol/HDL Ratio 2.79 Ratio; Globulin 2.3 g/dL (1.6-3.3); Glucose 129 mg/dL (70-110); LDL Cholesterol,Calculated 72.2 mg/dL (0.0-131.0); Potassium 4.4 mmol/L (3.5-5.5); Sodium 140 mmol/L (135-145); Total Bilirubin 0.4 mg/dL (0.3-1.2); Total Protein 6.9 g/dL (6.2-8.2); VLDL Calculation 17.66 mg/dL (5.00-40.00)
== END | disposition home or self-care (01) ==
LOC: LABWHC1 08:04
PROVIDERS: ATTEND Internal Medicine Interventional Cardiology
DX: E78.2 Mixed hyperlipidemia (principal)
CPT/HCPCS: 36415; 80053; 80061

== ENCOUNTER 2024-10-14 14:25 | Emergency (ER) | payer MEDICARE ==
[2024-10-14 15:35] VITALS: RESP 18; TEMP 98.8
--- NOTE | 2024-10-14 16:26 | ED ---
Weakness HPI - General Chief complaint: Weakness Stated complaint: Chills/Body Ache Time Seen by Provider: 10/14/24 16:25 Source: patient, family, RN notes reviewed Mode of arrival: wheelchair Limitations: no limitations - History of Present Illness Initial comments: 73-year-old male with history of diabetes, hyperlipidemia, and hypertension presenting to the ER for weakness. States 4 days ago he began to experience symptoms such as body aches, nasal congestion, headache, nausea, and fatigue. He tested positive for RSV and COVID-[address] Salmon's office yesterday. He has been on Paxlovid and azithromycin since yesterday. Is able to tolerate orals but states appetite is decreased due to nausea. Denies chest pain or shortness of breath. - Related Data Home Medications Medication Instructions Recorded Confirmed Aspirin EC [Ecotrin Low Dose] 81 mg PO HS 01/25/24 01/25/24 Atorvastatin [Lipitor] 40 mg PO HS 01/25/24 01/25/24 Glimepiride [Amaryl] 1 mg PO BID 01/25/24 01/25/24 Isosorbide Mononitrate ER [Imdur] 30 mg PO DAILY 01/25/24 01/25/24 Losartan/Hydrochlorothiazide 1 tab PO DAILY 01/25/24 01/25/24 [Losartan-Hctz 100-25 mg Tab] [place]-3 Fatty Acids/Fish Oil 1 cap PO BID 01/25/24 01/25/24 [[place]-3 Fish Oil 1,200 mg Sfgl] amLODIPine [Norvasc] 5 mg PO DAILY 01/25/24 01/25/24 metFORMIN HCL [Glucophage] 1,000 mg PO BID 01/25/24 01/25/24 rOPINIRole HCL [Requip] 1 mg PO TID 01/25/24 01/25/24 rOPINIRole HCL [Requip] 3 mg PO TID 01/25/24 01/25/24 Previous Rx's Medication Instructions Recorded Nitroglycerin Sl Tabs [Nitrostat] 0.4 mg SUBLINGUAL Q5M PRN #25 tab 01/27/24 Pantoprazole [Protonix] 40 mg PO AC-BRKFST 30 Days #30 tab 01/27/24 Ticagrelor [Brilinta] 90 mg PO BID #180 tab 01/27/24 Allergies Allergy/AdvReac Type Severity Reaction Status Date / Time No Known Allergies Allergy Verified 10/14/24 15:30 Review of Systems ROS Statement: Those systems with pertinent positive or pertinent negative responses have been documented in the HPI. ROS Other: All systems not noted in ROS Statement are negative. Past Medical History Past Medical History: Diabetes Mellitus, Hyperlipidemia, Hypertension Additional Past Medical History / Comment(s): Symptoms of parkinsons History of Any Multi-Drug Resistant Organisms: None Reported Past Surgical History: Hernia Repair, Tonsillectomy Additional Past Surgical History / Comment(s): Tonsils and adenoids, Rt thumb injury repair, repair of Right meniscus, sphincter repair, Left carotid endardectomy, Left cataract Past Psychological History: No Psychological Hx Reported Smoking Status: Never smoker Past Alcohol Use History: Rare Past Drug Use History: None Reported General Exam Limitations: no limitations General appearance: alert, in no apparent distress Head exam: Present: atraumatic, normocephalic, normal inspection Eye exam: Present: normal appearance, PERRL, EOMI. Absent: scleral icterus, conjunctival injection, periorbital swelling ENT exam: Present: normal exam, mucous membranes moist Respiratory exam: Present: normal lung sounds bilaterally. Absent: respiratory distress, wheezes, rales, rhonchi, stridor Cardiovascular Exam: Present: regular rate, normal rhythm, normal heart sounds. Absent: systolic murmur, diastolic murmur, rubs, gallop, clicks GI/Abdominal exam: Present: soft, normal bowel sounds. Absent: distended, tenderness, guarding, rebound, rigid Neurological exam: Present: alert, oriented X3 Psychiatric exam: Present: normal affect, normal mood Skin exam: Present: warm, dry, intact, normal color. Absent: rash Course Vital Signs 10/14/24 15:31 Temperature 98.8 F Pulse Rate 76 Respiratory 18 Rate Blood Pressure 109/67 O2 Sat by Pulse 97 Oximetry EKG Findings - EKG Results: EKG: interpreted by ERMD (EKG reveals normal sinus rhythm with no ST changes. Ventricular rate 70 bpm, MN interval 181, QRS duration 120, QT/QTc 369/402) Medical Decision Making - Medical Decision Making Was pt. sent in by a medical professional or institution (, PA, BOATBUILDER SUPERVISOR, urgent care, hospital, or alf...) When possible be specific @ -No Did you speak to anyone other than the patient for history (EMS, parent, family, police, friend...)? What history was obtained from this source @ -No Did you review nursing and triage notes (agree or disagree)? Why? @ -I reviewed and agree with nursing and triage notes Were old charts reviewed (outside hosp., previous admission, EMS record, old EKG, old radiological studies, urgent care reports/EKG's, alf records)? Report findings @ -No old charts were reviewed Differential Diagnosis (chest pain, altered mental status, abdominal pain women, abdominal pain men, vaginal bleeding, weakness, fever, dyspnea, syncope, headache, dizziness, GI bleed, back pain, seizure, CVA, palpatations, mental health, musculoskeletal)? @ -Viral URI, COVID, influenza, RSV, pneumonia, bronchitis, sepsis EKG interpreted by me (3pts min.). @ -As above X-rays interpreted by me (1pt min.). @ -Chest x-ray revealed no acute process CT interpreted by me (1pt min.). @ -None done U/S interpreted by me (1pt. min.). @ -None done What testing was considered but not performed or refused? (CT, X-rays, U/S, lab s)? Why? @ -None What meds were considered but not given or refused? Why? @ -None Did you discuss the management of the patient with other professionals (professionals i.e. , PA, BOATBUILDER SUPERVISOR, lab, RT, psych nurse, social insurance adviser, rack worker, teacher, engineering officer, vocational case manager)? Give summary @ -No Was smoking cessation discussed for >3mins.? @ -No Was critical care preformed (if so, how long)? @ -No Were there social determinants of health that impacted care today? How? (Homelessness, low income, unemployed, alcoholism, drug addiction, transportation, low edu. Level, literacy, decrease access to med. care, [facility], rehab)? @ -No Was there de-escalation of care discussed even if they declined (Discuss DNR or withdrawal of care, Hospice)? DNR status @ -No What co-morbidities impacted this encounter? (DM, HTN, Smoking, COPD, CAD, Cancer, CVA, ARF, Chemo, Hep., AIDS, mental health diagnosis, sleep apnea, morbid obesity)? @ -None Was patient admitted / discharged? Hospital course, mention meds given and route, prescriptions, significant lab abnormalities, going to OR and other pertinent info. @ -Discharge. This is a 73-year-old male presenting for weakness x 4 days. Tested positive for COVID-19 and RSV yesterday at PCP and is currently on Paxlovid and azithromycin. Vital signs are within acceptable limits. Patient is afebrile and nontachycardic, satting 97% on room air. No red flag symptoms or signs of respiratory distress. Patient is COVID-19 positive. Lab work largely unremarkable. EKG reveals no ischemic changes. Chest x-ray reveals no acute process. Results discussed with patient. I believe it is safe to discharge patient home with strict return precautions. Advised to continue Paxlovid as prescribed. Patient is comfortable with plan. Case was discussed with the ED attending Dr. Brothers Undiagnosed new problem with uncertain prognosis? @ -No Drug Therapy requiring intensive monitoring for toxicity (Heparin, Nitro, Insulin, Cardizem)? @ -No Were any procedures done? @ -No Diagnosis/symptom? @ -COVID-19 Acute, or Chronic, or Acute on Chronic? @ -Acute Uncomplicated (without systemic symptoms) or Complicated (systemic symptoms)? @ -Uncomplicated Side effects of treatment? @ -No Exacerbation, Progression, or Severe Exacerbation? @ -No Poses a threat to life or bodily function? How? (Chest pain, [place], NV, pneumonia, PE, COPD, DKA, ARF, appy, cholecystitis, CVA, Diverticulitis, Homicidal, Suicidal, threat to staff... and all critical care pts) @ -Not at this time - Lab Data Result diagrams: 10/14/24 16:48 10/14/24 16:48 Lab Results 10/14/24 10/14/24 10/14/24 Range/Units 16:48 16:48 16:48 WBC 6.1 (3.8-10.6) k/uL RBC 4.65 (4.30-5.90) m/uL Hgb 14.8 (13.0-17.5) gm/dL Hct 42.6 (39.0-53.0) % MCV 91.5 (80.0-100.0) fL MCH 31.9 (25.0-35.0) pg MCHC 34.8 (31.0-37.0) g/dL RDW 12.9 (11.5-15.5) % Plt Count 178 (150-450) k/uL MPV 8.2 Neutrophils % 79 % Lymphocytes % 10 % Monocytes % 7 % Eosinophils % 1 % Basophils % 0 % Neutrophils # 4.8 (1.3-7.7) k/uL Lymphocytes # 0.6 L (1.0-4.8) k/uL Monocytes # 0.5 (0-1.0) k/uL Eosinophils # 0.1 (0-0.7) k/uL Basophils # 0.0 (0-0.2) k/uL Sodium 135 L (137-145) mmol/L Potassium 3.7 (3.5-5.1) mmol/L Chloride 93 L (98-107) mmol/L Carbon Dioxide 30 (22-30) mmol/L Anion Gap 12 mmol/L BUN 24 H (9-20) mg/dL Creatinine 1.00 (0.66-1.25) mg/dL Est GFR (CKD-EPI)AfAm 86 (>60 ml/min/1.73 sqM) Est GFR (CKD-EPI)NonAf 74 (>60 ml/min/1.73 sqM) Glucose 111 H (74-99) mg/dL POC Glucose (mg/dL) (70-110) mg/dL POC Glu Topology Professor ID Plasma Lactic Acid Owen 1.2 (0.7-2.0) mmol/L Calcium 9.0 (8.4-10.2) mg/dL Total Bilirubin 0.8 (0.2-1.3) mg/dL AST 28 (17-59) U/L ALT 22 (4-49) U/L Alkaline Phosphatase 70 (38-126) U/L Total Protein 6.7 (6.3-8.2) g/dL Albumin 4.2 (3.5-5.0) g/dL Influenza Type A (PCR) (Not Detectd) Influenza Type B (PCR) (Not Detectd) RSV (PCR) (Not Detectd) SARS-CoV-2 (PCR) (Not Detectd) 10/14/24 10/14/24 Range/Units 16:48 16:59 WBC (3.8-10.6) k/uL RBC (4.30-5.90) m/uL Hgb (13.0-17.5) gm/dL Hct (39.0-53.0) % MCV (80.0-100.0) fL MCH (25.0-35.0) pg MCHC (31.0-37.0) g/dL RDW (11.5-15.5) % Plt Count (150-450) k/uL MPV Neutrophils % % Lymphocytes % % Monocytes % % Eosinophils % % Basophils % % Neutrophils # (1.3-7.7) k/uL Lymphocytes # (1.0-4.8) k/uL Monocytes # (0-1.0) k/uL Eosinophils # (0-0.7) k/uL Basophils # (0-0.2) k/uL Sodium (137-145) mmol/L Potassium (3.5-5.1) mmol/L Chloride (98-107) mmol/L Carbon Dioxide (22-30) mmol/L Anion Gap mmol/L BUN (9-20) mg/dL Creatinine (0.66-1.25) mg/dL Est GFR (CKD-EPI)AfAm (>60 ml/min/1.73 sqM) Est GFR (CKD-EPI)NonAf (>60 ml/min/1.73 sqM) Glucose (74-99) mg/dL POC Glucose (mg/dL) 102 (70-110) mg/dL POC Glu Topology Professor ID Pascual Mandi Plasma Lactic Acid Owen (0.7-2.0) mmol/L Calcium (8.4-10.2) mg/dL Total Bilirubin (0.2-1.3) mg/dL AST (17-59) U/L ALT (4-49) U/L Alkaline Phosphatase (38-126) U/L Total Protein (6.3-8.2) g/dL Albumin (3.5-5.0) g/dL Influenza Type A (PCR) Not Detected (Not Detectd) Influenza Type B (PCR) Not Detected (Not Detectd) RSV (PCR) Not Detected (Not Detectd) SARS-CoV-2 (PCR) Detected A (Not Detectd) Disposition Clinical Impression: COVID-19 Disposition: HOME SELF-CARE Condition: Stable Instructions (If sedation given, give patient instructions): How to Recover from COVID-19 at Home (ED) Additional Instructions: Please return to the Emergency Department if symptoms worsen or any other concerns. Is patient prescribed a controlled substance at d/c from ED?: No Referrals: Susie Salmon MD [Primary Care Provider] - 1-2 days Time of Disposition: 18:24
[2024-10-14] MEDS: ACETAMINOPHEN TAB 500 MG TAB PO STA ×2 (16:52→16:53)
[2024-10-14 16:56] LABS: Basophils % (A) 0 %; Eosinophils % (A) 1 %; HCT 42.6 % (39.0-53.0); HGB 14.8 gm/dL (13.0-17.5); Lymphocytes % (A) 10 %; MCH 31.9 pg (25.0-35.0); MCHC 34.8 g/dL (31.0-37.0); MCV 91.5 fL (80.0-100.0); Mean Platelet Volume 8.2; Monocytes % (A) 7 %; Neutrophils % (A) 79 %; Platelet Count 178 k/uL (150-450); RBC 4.65 m/uL (4.30-5.90); RDW 12.9 % (11.5-15.5); WBC 6.1 k/uL (3.8-10.6)
[2024-10-14 16:57] LABS: Eosinophils # (A) 0.1 k/uL (0-0.7); Lymphocytes # (A) 0.6 k/uL (1.0-4.8); Monocytes # (A) 0.5 k/uL (0-1.0); Neutrophils # (A) 4.8 k/uL (1.3-7.7)
[2024-10-14 17:00] LABS: Glucose,Whole Blood 102 mg/dL (70-110)
[2024-10-14 17:18] LABS: ALT 22 U/L (4-49); AST 28 U/L (17-59); African American GFR (CKD) 86 (>60 ml/min/1.73 sqM); Albumin 4.2 g/dL (3.5-5.0); Alkaline Phosphatase 70 U/L (38-126); Anion Gap 12 mmol/L; Blood Urea Nitrogen 24 mg/dL (9-20); Carbon Dioxide 30 mmol/L (22-30); Chloride 93 mmol/L (98-107); Glucose 111 mg/dL (74-99); Non-African American GFR(CKD) 74 (>60 ml/min/1.73 sqM); Potassium 3.7 mmol/L (3.5-5.1); Sodium 135 mmol/L (137-145); Total Bilirubin 0.8 mg/dL (0.2-1.3); Total Protein 6.7 g/dL (6.3-8.2)
[2024-10-14 17:37] LABS: Influenza A Not Detected (Not Detectd); Influenza B Not Detected (Not Detectd); RSV Not Detected (Not Detectd)
--- NOTE | 2024-10-14 17:45 | XR ---
EXAMINATION TYPE: XR chest 2V DATE OF EXAM: 10/14/2024 5:37 PM COMPARISON: 01/25/2024 CLINICAL INDICATION: Male, 73 years old with history of cough, TECHNIQUE: XR chest 2V view(s) obtained. FINDINGS: The heart size is normal. The pulmonary vasculature is normal. The lungs are clear. IMPRESSION: 1. No acute pulmonary process. [facility], Workstation: [facility], 10/14/2024 5:42 PM
[2024-10-14 18:52] VITALS: BP 135/78; PULSE 78
== END 2024-10-14 18:52 | disposition home or self-care (01) ==
LOC: EC 14:25
DX: U07.1 COVID-19 (principal); E78.5 Hyperlipidemia, unspecified; I10 Essential (primary) hypertension; E11.9 Type 2 diabetes mellitus without complications
CPT/HCPCS: 36415; 71046; 80053; 83605; 85025; 87636; 93005; 99285

== ENCOUNTER → 2025-02-24 | Outpatient (CLI) | payer MEDICARE ==
[~2025-02-24] MED LIST: IODINE/POTASSIUM IODIDE 14 ML BOTTLE ONE
--- NOTE | 2025-02-26 14:33 | NM ---
EXAMINATION TYPE: NM DatScan Brain SPECT DATE OF EXAM: 02/24/2025 COMPARISON: NONE CLINICAL INDICATION: Male, 74 years old with history of R25.1 tremor; TECHNIQUE: 10 drops of Lugol's solution was administered 1 hour prior to injection as a thyroid bloc libra agent. After the administration of 5 mCi I-123 Ioflupane DaTscan. Images obtained 3 hours post injection. SPECT images of the brain were acquired with axial and coronal reconstructions. FINDINGS: The uptake of radiotracer within the patient's caudate nuclei and putamina is symmetric and crescent- shaped. IMPRESSION: There is no scintigraphic evidence of a neurodegenerative disorder (Parkinson's disease, Multisystem atrophy or Progressive supranuclear palsy), as there is symmetric uptake of I-123 Ioflupan (DaTscan) within the caudate nuclei and putamina. [facility], , 02/26/2025 2:31 PM
== END | disposition home or self-care (01) ==
LOC: RADNMMAIN 08:49
PROVIDERS: ATTEND Psychiatry & Neurology Neurology
DX: R25.1 Tremor, unspecified (principal)
CPT/HCPCS: 78803; A9584